=== PATIENT | male | born 1945 | race Caucasian/White ===

== ENCOUNTER 2020-07-11 14:10 | Emergency (ER) | payer OTHER, MEDICARE, BC ==
[~2020-07-11] VITALS: Ht 185.4 cm; Wt 98.9 kg
[~2020-07-11 14:10] MED LIST: ASPI-1265 PO; CARB15DR88 OP; DOCU250C96 PO; FERR325T28 PO; LEVO50TA78 PO; RANI300C7 PO; SENN-28 PO; TIOT18CA7 IH; ZOC40T PO
[2020-07-11 16:50] LABS: CLARITY,URINE CLEAR (Clear); COLOR,URINE YELLOW (Yellow); GLUCOSE, URINE NEGATIVE (Neg); KETONES,URINE NEGATIVE (Neg); LEUKOCYTE ESTERASE ,URINE NEGATIVE (Neg); NITRITES, URINE NEGATIVE (Neg); OCCULT BLOOD,URINE NEGATIVE (Neg); PROTEIN,URINE NEGATIVE (Neg)
--- NOTE | 2020-07-11 17:02 | NUR ---
PT STOPPED HIS PSYCH MED IN 2012. PT HEARING VOICES, SEEING DEMONS AND RACING THOUGHTS FOR THE PAST 2-3 DAYS. WORSENING TODAY. PT FEELS LIKE HE IS POSSESSED. FINDS COMFORT READING BIBLE. PT STATES, MY NIECE WOULD SAY SOMETHING (APPROPRIAE) AND I BECOME IRRATIONAL AND START YELLING FOR NO REASON. " I START TO BECOME SOMEONE I DONT LIKE. PT FEELS LIKE THOUGHTS ARE GETTING WORSE AND AFRAID MIGHT HURT OTHERS AND THEN HURT HIMSELF.. HE CAME IN TODAY FOR HELP BEFORE SOMETHING BAD HAPPENS.
[2020-07-11 17:08] LABS: URINE AMPHETAMINE SCREEN NEGATIVE (Neg); URINE BARBITUATE SCREEN NEGATIVE (Neg); URINE BENZODIAZEPINES SCREEN NEGATIVE (Neg); URINE CANNABINOID SCREEN NEGATIVE (Neg); URINE COCAINE SCREEN NEGATIVE (Neg); URINE METHADONE SCREEN NEGATIVE (Neg); URINE OPIATE SCREEN NEGATIVE (Neg); URINE PHENCYCLIDINE SCREEN NEGATIVE (Neg)
[2020-07-11 17:11] LABS: UA COLLECTION TYPE CLN CATCH MIDSTREAM
--- NOTE | 2020-07-11 17:14 | NUR ---
FRANCISCO JAVIER SISTER CALLED TO LEAVE PHONE NUMBER OF EVANGELICAL FRIEND JACINDA [phone].
[2020-07-11 17:19] LABS: BASOPHILS % (AUTO) 0.5 % (0-1); EOSINOPHILS # (AUTO) 0.2 X10'3 (0-0.9); EOSINOPHILS % (AUTO) 3.5 % (0-6); HEMATOCRIT 40.6 % (42.0-52.0); HEMOGLOBIN 13.3 g/dl (14.0-17.9); LYMPHOCYTES # (AUTO) 1.4 X10'3 (1.1-4.8); LYMPHOCYTES % (AUTO) 31.4 % (21-51); MEAN CORPUSCULAR HEMOGLOBIN 32.4 PG (27.0-31.0); MEAN CORPUSCULAR HGB CONC 32.7 g/dL (33.0-36.5); MEAN CORPUSCULAR VOLUME 99.2 FL (78-98); MONOCYTES # (AUTO) 0.6 X10'3 (0-0.9); MONOCYTES % (AUTO) 12.6 % (2-12); NEUTROPHILS # (AUTO) 2.4 X10'3 (1.8-7.7); PLATELET COUNT 186 X10'3 (140-440); RED BLOOD COUNT 4.09 X10'6 (4.70-6.10); RED CELL DISTRIBUTION WIDTH 13.9 % (11.5-14.5); WHITE BLOOD COUNT 4.6 X10'3 (4.5-11.0)
[2020-07-11 17:41] LABS: ALANINE AMINOTRANSFERASE 17 U/L (12-78); ALBUMIN 3.6 G/DL (3.4-5.0); ALBUMIN/GLOBULIN RATIO 1.1 (1.1-1.5); ALKALINE PHOSPHATASE 50 IU/L (46-116); ANION GAP 2 (8-16); ASPARTATE AMINO TRANSFERASE 16 U/L (10-37); BILIRUBIN,TOTAL 0.9 MG/DL (0.1-1.0); BLOOD UREA NITROGEN 9 MG/DL (7-18); BUN/CREATININE RATIO 12.9 (5.4-32.0); CALCIUM 8.4 MG/DL (8.5-10.1); CHLORIDE 105 MMOL/L (99-107); GLUCOSE 86 MG/DL (70-104); POTASSIUM 4.7 MMOL/L (3.5-5.1); SODIUM 141 MMOL/L (135-145); TOTAL CARBON DIOXIDE 33.7 MMOL/L (24-32); eGFR > 90 ML/MIN
--- NOTE | 2020-07-11 17:45 | NUR ---
FAXED PACKET [facility]
--- NOTE | 2020-07-11 18:30 | NUR ---
pt sitting on edge of bed eating dinner and then ambulated to the bathroom without issue. returned self to bed.
[2020-07-11] MEDS ORDERED: NO HOME MEDS (19:23)
--- NOTE | 2020-07-11 19:34 | NUR ---
PT USED PHONE TO CONTACT FAMILY. PT NOW SITTING IN BED READING BIBLE COMFORTABLY.
--- NOTE | 2020-07-11 20:30 | NUR ---
pt sitting in bed reading bible. has no nightly medications. will continue to monitor. is calm, polite, cooperative with staff.
--- NOTE | 2020-07-11 21:25 | NUR ---
pt denies any suicidal ideation, but states scared as the voices and hallucinations have increased over the last few days. pt states reading his bible helps him concentrate on reality and decrease the racing thoughts. states the demon voices want him to hurt himself or others but he does not want to. pt is now currently sleeping with no visible discomfort, respirations even and unlabored and no s/s distress.
--- NOTE | 2020-07-11 22:30 | NUR ---
pt appears asleep laying on back. no s/s distress and respirations even and unlabored. will continue to monitor.
--- NOTE | 2020-07-11 23:29 | NUR ---
pt appears asleep laying on back. no s/s distress and respirations even and unlabored. will continue to monitor.
--- NOTE | 2020-07-11 23:41 | NUR ---
pt woke up and ambulated to bathroom. pt then returned to bed without any issue. will continue to monitor
--- NOTE | 2020-07-12 00:30 | NUR ---
pt appears asleep laying on back. no s/s distress and respirations even and unlabored. will continue to monitor.
--- NOTE | 2020-07-12 01:20 | NUR ---
pt ambulated up to bed and requesting fresh ice water. water provided and pt then returned back to bed and appears now to be asleep.
--- NOTE | 2020-07-12 02:30 | NUR ---
pt appears asleep laying on right side. no s/s distress and respirations even and unlabored. will continue to monitor.
--- NOTE | 2020-07-12 03:51 | NUR ---
pt woke up to use restroom and complained of headache. spoke with braulio stratton who stated to give tylenol 650mg po x1 dose now. order completed as instructed. pt then returned back to bed after medication.
[2020-07-12] MEDS ORDERED: acetaminophen 325mg tablet PO ONE (03:55)
--- NOTE | 2020-07-12 04:40 | NUR ---
pt appears asleep laying on right side. no s/s distress and respirations even and unlabored. will continue to monitor.
[2020-07-12 05:48] VITALS: BP 98/54
--- NOTE | 2020-07-12 06:00 | NUR ---
pt ambulated up to bathroom and is now reading a book in bed. pt polite and cooperative.
--- NOTE | 2020-07-12 10:20 | NUR ---
sister called for transport
--- NOTE | 2020-07-12 12:57 | NUR ---
PATIENT IS GETTING READY FOR DC. PATIENT'S SISTER IS HERE IN PARKING LOT TO GIVE HIM A RIDE HOME.
== END 2020-07-12 13:13 | disposition home or self-care (01) ==
LOC: ER 14:11
DX: F20.9 Schizophrenia, unspecified (principal); I10 Essential (primary) hypertension; J44.9 Chronic obstructive pulmonary disease, unspecified; M19.90 Unspecified osteoarthritis, unspecified site; Z79.899 Other long term (current) drug therapy; Z79.82 Long term (current) use of aspirin
CPT/HCPCS: 36415; 80053; 80305; 81003; 84443; 85025; 99283

== ENCOUNTER 2020-07-31 13:28 | Emergency (ER) | payer OTHER, BC ==
[~2020-07-31] VITALS: Ht 185.4 cm; Wt 96.4 kg
[~2020-07-31 13:28] MED LIST changes: -ASPI-1265 PO; -CARB15DR88 OP; -DOCU250C96 PO; -FERR325T28 PO; -LEVO50TA78 PO; +NO HOME MEDS; -RANI300C7 PO; -SENN-28 PO; -TIOT18CA7 IH; -ZOC40T PO
--- NOTE | 2020-07-31 14:22 | NUR ---
linda soto pa at bedside to clement pt, pt is 75 yo male c/o SOB x2-3 days, no fever, no chest pain, no cough, [facility] no [facility] distress, talking full sentences
[2020-07-31 15:24] LABS: BASOPHILS % (AUTO) 0.5 % (0-1); EOSINOPHILS # (AUTO) 0.2 X10'3 (0-0.9); EOSINOPHILS % (AUTO) 5.3 % (0-6); HEMATOCRIT 39.8 % (42.0-52.0); HEMOGLOBIN 13.1 g/dl (14.0-17.9); LYMPHOCYTES # (AUTO) 1.3 X10'3 (1.1-4.8); LYMPHOCYTES % (AUTO) 30.5 % (21-51); MEAN CORPUSCULAR HEMOGLOBIN 32.3 PG (27.0-31.0); MEAN CORPUSCULAR HGB CONC 32.8 g/dL (33.0-36.5); MEAN CORPUSCULAR VOLUME 98.5 FL (78-98); MEAN PLATELET VOLUME 6.6 FL (7.4-10.4); MONOCYTES # (AUTO) 0.5 X10'3 (0-0.9); MONOCYTES % (AUTO) 11.6 % (2-12); NEUTROPHILS # (AUTO) 2.2 X10'3 (1.8-7.7); NEUTROPHILS % (AUTO) 52.1 % (42-75); PLATELET COUNT 199 X10'3 (140-440); RED BLOOD COUNT 4.04 X10'6 (4.70-6.10); RED CELL DISTRIBUTION WIDTH 14.3 % (11.5-14.5); WHITE BLOOD COUNT 4.2 X10'3 (4.5-11.0)
[2020-07-31 15:42] LABS: ALANINE AMINOTRANSFERASE 23 U/L (12-78); ALBUMIN 3.4 G/DL (3.4-5.0); ALBUMIN/GLOBULIN RATIO 1.1 (1.1-1.5); ALKALINE PHOSPHATASE 48 IU/L (46-116); ANION GAP 1 (8-16); ASPARTATE AMINO TRANSFERASE 19 U/L (10-37); BILIRUBIN,TOTAL 1.2 MG/DL (0.1-1.0); BLOOD UREA NITROGEN 7 MG/DL (7-18); BUN/CREATININE RATIO 8.6 (5.4-32.0); CALCIUM 8.5 MG/DL (8.5-10.1); CHLORIDE 105 MMOL/L (99-107); CREATININE 0.81 MG/DL (0.60-1.10); GLUCOSE 90 MG/DL (70-104); POTASSIUM 4.3 MMOL/L (3.5-5.1); SODIUM 142 MMOL/L (135-145); TOTAL PROTEIN 6.5 G/DL (6.4-8.2); eGFR > 90 ML/MIN
[2020-07-31] MEDS ORDERED: albuterol 2.5 MG/3 ML nebule NEB ONE (16:15)
[2020-07-31] MEDS ORDERED: ALBU8HFA PO (16:53)
[2020-07-31 17:53] VITALS: BP 117/60
== END 2020-07-31 17:49 | disposition home or self-care (01) ==
LOC: ER 13:29
DX: R06.02 Shortness of breath (principal); I10 Essential (primary) hypertension; J44.9 Chronic obstructive pulmonary disease, unspecified; M19.90 Unspecified osteoarthritis, unspecified site; F20.9 Schizophrenia, unspecified; Z79.899 Other long term (current) drug therapy
CPT/HCPCS: 36415; 71045; 80053; 83880; 84484; 85025; 93005; 94640; 94760; 99285

== ENCOUNTER 2020-08-22 23:01 | Emergency (ER) | payer OTHER, MEDICARE, BC ==
[~2020-08-22] VITALS: Ht 185.4 cm; Wt 96.4 kg
[~2020-08-22 23:01] MED LIST changes: +ALBU8HFA PO
--- NOTE | 2020-08-22 23:35 | NUR ---
PATIENT IN BED COVERS ON SUPIN HOB 30 DEGREES RR EVEN UN LABORED NO OBSERVABLE S/S OF ACUTE STRESS AT THIS TIME WILL CONTINUE TO MONITOR
[2020-08-22 23:43] LABS: PARTIAL THROMBOPLASTIN TIME 26 SECONDS (22-32)
[2020-08-22 23:45] LABS: ALANINE AMINOTRANSFERASE 20 U/L (12-78); ALBUMIN 3.4 G/DL (3.4-5.0); ALBUMIN/GLOBULIN RATIO 1.1 (1.1-1.5); ALKALINE PHOSPHATASE 54 IU/L (46-116); ANION GAP 2 (8-16); ASPARTATE AMINO TRANSFERASE 13 U/L (10-37); BLOOD UREA NITROGEN 10 MG/DL (7-18); BUN/CREATININE RATIO 11.1 (5.4-32.0); CALCIUM 8.4 MG/DL (8.5-10.1); CHLORIDE 104 MMOL/L (99-107); GLUCOSE 148 MG/DL (70-104); POTASSIUM 3.9 MMOL/L (3.5-5.1); SODIUM 139 MMOL/L (135-145); TOTAL CARBON DIOXIDE 33.5 MMOL/L (24-32); TOTAL PROTEIN 6.6 G/DL (6.4-8.2); eGFR 83 ML/MIN
[2020-08-23 00:23] LABS: BASOPHILS % (AUTO) 0.5 % (0-1); EOSINOPHILS # (AUTO) 0.2 X10'3 (0-0.9); EOSINOPHILS % (AUTO) 4.3 % (0-6); HEMATOCRIT 39.9 % (42.0-52.0); HEMOGLOBIN 13.3 g/dl (14.0-17.9); LYMPHOCYTES # (AUTO) 1.3 X10'3 (1.1-4.8); LYMPHOCYTES % (AUTO) 26.2 % (21-51); MEAN CORPUSCULAR HEMOGLOBIN 32.8 PG (27.0-31.0); MEAN CORPUSCULAR HGB CONC 33.2 g/dL (33.0-36.5); MEAN CORPUSCULAR VOLUME 98.7 FL (78-98); MEAN PLATELET VOLUME 7.2 FL (7.4-10.4); MONOCYTES # (AUTO) 0.5 X10'3 (0-0.9); MONOCYTES % (AUTO) 10.2 % (2-12); NEUTROPHILS % (AUTO) 58.8 % (42-75); PLATELET COUNT 181 X10'3 (140-440); RED BLOOD COUNT 4.04 X10'6 (4.70-6.10); RED CELL DISTRIBUTION WIDTH 13.9 % (11.5-14.5); WHITE BLOOD COUNT 5.1 X10'3 (4.5-11.0)
[2020-08-23 00:38] LABS: CLARITY,URINE CLEAR (Clear); COLOR,URINE YELLOW (Yellow); GLUCOSE, URINE NEGATIVE (Neg); KETONES,URINE NEGATIVE (Neg); LEUKOCYTE ESTERASE ,URINE NEGATIVE (Neg); NITRITES, URINE NEGATIVE (Neg); OCCULT BLOOD,URINE NEGATIVE (Neg); PH,URINE 5.5 (4.8-8.0); PROTEIN,URINE NEGATIVE (Neg); UROBILINOGEN,URINE 0.2 E.U/dL (0.2-1.0)
[2020-08-23 00:42] LABS: UA COLLECTION TYPE CLN CATCH MIDSTREAM
[2020-08-23 00:44] LABS: URINE AMPHETAMINE SCREEN NEGATIVE (Neg); URINE BARBITUATE SCREEN NEGATIVE (Neg); URINE BENZODIAZEPINES SCREEN NEGATIVE (Neg); URINE CANNABINOID SCREEN NEGATIVE (Neg); URINE COCAINE SCREEN NEGATIVE (Neg); URINE METHADONE SCREEN NEGATIVE (Neg); URINE OPIATE SCREEN NEGATIVE (Neg); URINE PHENCYCLIDINE SCREEN NEGATIVE (Neg)
[2020-08-23] MEDS ORDERED: QUEtiapine 25mg tablet PO ONE (01:23)
[2020-08-23] MEDS ORDERED: ZIPR60CA7 PO (01:57)
--- NOTE | 2020-08-23 02:12 | NUR ---
pt moved from 6 to room 14
--- NOTE | 2020-08-23 02:31 | NUR ---
PT REPORTS NASAL IRRITATION AND DRYNESS. CONSULTED WITH RESPIRATORY TO HAVE HUMIDIFIER PLACED ON NC. RESP TO CONSULT
--- NOTE | 2020-08-23 04:55 | NUR ---
UP TO BR , AMBLUATING WITH STEADY GAIT. CONTINUES ON 2 LITER NC. SATS 95%
--- NOTE | 2020-08-23 05:56 | NUR ---
MED REC SIGNED BY AND FAXED TO PHARMACY. PT SLEEPING, LYING ON HIS BACK WITH BLANKETS COVERING TO HIS CHEST.
--- NOTE | 2020-08-23 07:00 | NUR ---
PT REMAINS ASLEEP, WILL DO GENERAL ASSESSMENT WHEN PT WAKES UP. NO S/S OF DISTRESS NOTED AT THIS TIME
--- NOTE | 2020-08-23 07:56 | NUR ---
HOME RN HERE, REPORT GIVEN
[2020-08-23] MEDS ORDERED: ziprasidone 20mg capsule PO SCH (08:00)
--- NOTE | 2020-08-23 08:12 | NUR ---
Patient laying supine in bed sleeping. Respirations are equal and nonlabored.
--- NOTE | 2020-08-23 09:37 | NUR ---
Patient awakened, ate breakfast and took medications without incident. Patient is hyperverbal and tearful as he talks about his life. Patient reports that last night he had racing thoughts that he could not control. Reports that he has occasional AH. Patient presents as hyper-synagogue. Patient's stressors are that he has a niece and her father that are living with him, and they continually belittle him. It became so much that he moved into his sisters house (his payee) until they move out on November 03, 2020. When he confronts their behavior, they turn it around on him that he is belitteling to them, and then he feels guilty and lets them stay. Patient did report that last night he was fearful of hurting someone else. He started taking Geodon two months ago, but reports that he has to wait for his medication to be filled, and then he runs out. Patient reports depressive symptoms.
--- NOTE | 2020-08-23 10:19 | NUR ---
Patient is sleeping after Geodon administration.
--- NOTE | 2020-08-23 11:24 | NUR ---
Patient ambulated to restroom. Steady gait. Now laying back down in bed.
--- NOTE | 2020-08-23 12:21 | NUR ---
PT'S SISTER CALLED FOR STATUS UPDATE. WAS TOLD PT WAS STILL IN THE ER. CONTACT INFO IF NEEDED: ARAVIND CROSS
--- NOTE | 2020-08-23 12:34 | NUR ---
Lani Sandoval here to evaluate patient for admission to [facility].
--- NOTE | 2020-08-23 13:19 | NUR ---
Patient has been accepted at [facility] as voluntary placement.
[2020-08-23 13:37] VITALS: BP 103/61
== END 2020-08-23 15:24 ==
LOC: ER 23:02
DX: F20.9 Schizophrenia, unspecified (principal); I10 Essential (primary) hypertension; J44.9 Chronic obstructive pulmonary disease, unspecified; M19.90 Unspecified osteoarthritis, unspecified site; Z79.899 Other long term (current) drug therapy
CPT/HCPCS: 36415; 71045; 80053; 80305; 81003; 85025; 85730; 99285

== ENCOUNTER 2020-09-13 11:52 | Emergency (ER) | payer OTHER, BC ==
[~2020-09-13] VITALS: Ht 185.4 cm; Wt 96.4 kg
[~2020-09-13 11:52] MED LIST changes: -ALBU8HFA PO; +ESCI5TAB PO; -NO HOME MEDS; +TRAZ-251 PO; +ZIPR40CA2 PO
[2020-09-13 12:03] VITALS: BP 125/74
== END 2020-09-13 14:46 | disposition home or self-care (01) ==
LOC: ER 11:53
DX: M54.5 Low back pain (principal); I10 Essential (primary) hypertension; J44.9 Chronic obstructive pulmonary disease, unspecified; M19.90 Unspecified osteoarthritis, unspecified site; F20.9 Schizophrenia, unspecified; Z79.899 Other long term (current) drug therapy
CPT/HCPCS: 99281

== ENCOUNTER 2021-01-30 21:09 | Emergency (ER) | payer OTHER, BC ==
[~2021-01-30] VITALS: Ht 185.4 cm; Wt 97.7 kg
[2021-01-30 22:40] VITALS: BP 98/50
--- NOTE | 2021-01-30 23:03 | NUR ---
BREAKING PRIMARY RN- WILL CONT TO MONITOR
--- NOTE | 2021-01-30 23:07 | NUR ---
ULTRASOUND AT BEDSIDE NOW.
[2021-01-30 23:09] LABS: CLARITY,URINE CLEAR (Clear); COLOR,URINE YELLOW (Yellow); GLUCOSE, URINE NEGATIVE (Neg); KETONES,URINE NEGATIVE (Neg); LEUKOCYTE ESTERASE ,URINE NEGATIVE (Neg); NITRITES, URINE NEGATIVE (Neg); OCCULT BLOOD,URINE NEGATIVE (Neg); PROTEIN,URINE NEGATIVE (Neg)
[2021-01-30 23:10] LABS: UA COLLECTION TYPE URINAL
--- NOTE | 2021-01-30 23:17 | NUR ---
BEDSIDE ULTRASOUND COMPLETED.
== END 2021-01-31 00:18 | disposition home or self-care (01) ==
LOC: ER 21:10
DX: R10.32 Left lower quadrant pain (principal); N50.812 Left testicular pain; I10 Essential (primary) hypertension; J44.9 Chronic obstructive pulmonary disease, unspecified; M19.90 Unspecified osteoarthritis, unspecified site; F20.9 Schizophrenia, unspecified; Z79.899 Other long term (current) drug therapy
CPT/HCPCS: 76705; 76870; 81003; 93976; 99285

== ENCOUNTER 2021-02-05 18:08 | Emergency (ER) | payer OTHER, BC ==
[~2021-02-05] VITALS: Ht 185.4 cm; Wt 90.9 kg
[2021-02-05 18:15] VITALS: BP 125/61
[2021-02-07] MEDS ORDERED: CARB1DRO11 EACHEYE (17:07)
[2021-02-07] MEDS ORDERED: OLAN7.5T9 PO (17:07)
[2021-02-07] MEDS ORDERED: TRAZ-251 PO (17:07)
[2021-02-07] MEDS ORDERED: GABA300C PO (17:07)
[2021-02-07] MEDS ORDERED: ESCI5TAB17 PO (17:07)
== END 2021-02-05 21:00 | disposition left against medical advice (07) ==
LOC: ER 18:11
DX: R41.0 Disorientation, unspecified (principal); Z53.21 Procedure and treatment not carried out due to patient leaving prior to being seen by health care provider

== ENCOUNTER 2021-02-16 07:02 | Inpatient (IN) | payer OTHER, BC ==
[~2021-02-16] VITALS: Ht 185.4 cm; Wt 91.4 kg
[2021-02-16] VITALS (9 sets, daily range): BP systolic 81–114; BP diastolic 48–65
[~2021-02-16 07:02] MED LIST changes: +CARB1DRO11 EACHEYE; -ESCI5TAB PO; +ESCI5TAB17 PO; +GABA300C PO; +OLAN7.5T9 PO; +PRED10TA23 PO; -ZIPR40CA2 PO
[2021-02-16] MEDS ORDERED: ipratropium/albuterol 3ml nebule NEB ONE ×2 (07:15→08:45)
[2021-02-16 07:22] LABS: BASOPHILS % (AUTO) 0.5 % (0-1); EOSINOPHILS # (AUTO) 0.2 X10'3 (0-0.9); EOSINOPHILS % (AUTO) 2.1 % (0-6); HEMATOCRIT 39.9 % (42.0-52.0); HEMOGLOBIN 12.4 g/dl (14.0-17.9); LYMPHOCYTES # (AUTO) 1.9 X10'3 (1.1-4.8); LYMPHOCYTES % (AUTO) 26.1 % (21-51); MEAN CORPUSCULAR HEMOGLOBIN 31.4 PG (27.0-31.0); MEAN CORPUSCULAR HGB CONC 31.2 g/dL (33.0-36.5); MEAN CORPUSCULAR VOLUME 100.8 FL (78-98); MEAN PLATELET VOLUME 6.6 FL (7.4-10.4); MONOCYTES # (AUTO) 0.9 X10'3 (0-0.9); MONOCYTES % (AUTO) 12.8 % (2-12); NEUTROPHILS # (AUTO) 4.3 X10'3 (1.8-7.7); NEUTROPHILS % (AUTO) 58.5 % (42-75); PLATELET COUNT 236 X10'3 (140-440); RED BLOOD COUNT 3.96 X10'6 (4.70-6.10); RED CELL DISTRIBUTION WIDTH 15.2 % (11.5-14.5); WHITE BLOOD COUNT 7.4 X10'3 (4.5-11.0)
[2021-02-16 07:57] LABS: ALANINE AMINOTRANSFERASE 22 U/L (12-78); ALBUMIN 2.8 G/DL (3.4-5.0); ALBUMIN/GLOBULIN RATIO 0.8 (1.1-1.5); ALKALINE PHOSPHATASE 57 IU/L (46-116); ANION GAP 0 (8-16); ASPARTATE AMINO TRANSFERASE 12 U/L (10-37); BILIRUBIN,TOTAL 0.5 MG/DL (0.1-1.0); BLOOD UREA NITROGEN 15 MG/DL (7-18); BUN/CREATININE RATIO 17.4 (5.4-32.0); CALCIUM 8.3 MG/DL (8.5-10.1); CHLORIDE 105 MMOL/L (99-107); CREATININE 0.86 MG/DL (0.60-1.10); GLUCOSE 100 MG/DL (70-104); POTASSIUM 4.4 MMOL/L (3.5-5.1); SODIUM 146 MMOL/L (135-145); TOTAL PROTEIN 6.5 G/DL (6.4-8.2); eGFR 87 ML/MIN
[2021-02-16 08:11] LABS: TOTAL CARBON DIOXIDE 41.2 MMOL/L (24-32)
[2021-02-16] MEDS ORDERED: ondansetron/PF 4mg/2ml inj IV PRN (08:50)
[2021-02-16] MEDS ORDERED: HYDROcodone/acetaminophen 10/325mg tab PO PRN (08:50)
[2021-02-16] MEDS ORDERED: acetaminophen 325mg tablet PO PRN ×2 (08:50)
[2021-02-16] MEDS ORDERED: morphine 2 MG/ML inj. syringe IV PRN ×2 (08:50)
[2021-02-16] MEDS ORDERED: HYDROcodone/acetaminophen 5mg/325mg tablet PO PRN (08:50)
[2021-02-16] MEDS ORDERED: mag hydrox/Alum hydrox/simeth 30ml oral suspension PO PRN (08:50)
[2021-02-16] MEDS ORDERED: magnesium hydroxide 30ml (MOM) UD suspension PO PRN (08:50)
[2021-02-16] MEDS ORDERED: nitroGLYCERIN 0.4mg SUBLingual tab SL PRN (09:30)
[2021-02-16] MEDS ORDERED: metoprolol tartrate 1mg/ml inj IV PRN (09:30)
[2021-02-16] MEDS ORDERED: regadenoson 0.4mg/5ml syringe IV ONE (09:30)
[2021-02-16] MEDS ORDERED: aminophylline 250mg/10ml inj. IV PRN (09:30)
[2021-02-16] MEDS ORDERED: furosemide 20 MG/2 ML vial IV ONE (09:40)
--- NOTE | 2021-02-16 09:43 | NUR ---
RT at bedside for neb as ordered.
--- NOTE | 2021-02-16 11:30 | NUR ---
To nuclear medicine via for study as ordered. Addendum: 02/16/21 at 1223 by GENOVEVA nuc med nurse previously administered medication; still awaiting study at this time.
[2021-02-16] MEDS ORDERED: CALC-225 PO (12:21)
--- NOTE | 2021-02-16 12:44 | NUR ---
To [employer] for study via .
[2021-02-16] MEDS ORDERED: gabapentin 300mg capsule PO ONE (16:20)
[2021-02-16] MEDS ORDERED: traZODone 50mg tablet PO PRN (16:25)
[2021-02-16] MEDS ORDERED: OLANZapine 2.5MG tablet PO SCH (21:00)
[2021-02-16] MEDS: PEG 400/HYPROMELLOSE/GLYCERIN 15ml bottle EACHEYE SCH (21:39)
[2021-02-17 06:00] VITALS: BP 108/57
--- NOTE | 2021-02-17 06:22 | NUR ---
Problems reprioritized. Patient report given, questions answered & plan of care reviewed with BERNIE Mosqueda.
--- NOTE | 2021-02-17 06:31 | NUR ---
Patient in room PCU 3014. I have received report from BERNIE Padilla and had the opportunity to ask questions and assume patient care.
--- NOTE | 2021-02-17 07:05 | NUR ---
Paged Dr Any nichols pt medication: PAGER ID: [phone] MESSAGE: pt alton Ochoa, rm [id number] hypotension: 80/68, 83/41, 82/38. HR in low 100s. Remains on bipap. would you like any tx? Jaylin [phone] Addendum: 02/17/21 at 0706 by Jaylin Saleh RN wrong patient
--- NOTE | 2021-02-17 07:06 | NUR ---
Paged Dr. Agarwal re: pt medications: PAGER ID: [phone] MESSAGE: Med rec completed for this patient. Patient states "I need my nerve pain pill or I will scream" May pt have Gabapentin 300 mg TID? Thank you Jaylin [phone]
[2021-02-17 07:25] LABS: BASOPHILS % (AUTO) 0.2 % (0-1); EOSINOPHILS # (AUTO) 0.2 X10'3 (0-0.9); EOSINOPHILS % (AUTO) 2.8 % (0-6); HEMATOCRIT 39.9 % (42.0-52.0); HEMOGLOBIN 12.8 g/dl (14.0-17.9); LYMPHOCYTES # (AUTO) 1.7 X10'3 (1.1-4.8); LYMPHOCYTES % (AUTO) 25.5 % (21-51); MEAN CORPUSCULAR HGB CONC 32.1 g/dL (33.0-36.5); MEAN CORPUSCULAR VOLUME 99.7 FL (78-98); MEAN PLATELET VOLUME 6.6 FL (7.4-10.4); MONOCYTES # (AUTO) 0.7 X10'3 (0-0.9); MONOCYTES % (AUTO) 11.2 % (2-12); NEUTROPHILS # (AUTO) 3.9 X10'3 (1.8-7.7); NEUTROPHILS % (AUTO) 60.3 % (42-75); PLATELET COUNT 251 X10'3 (140-440); RED CELL DISTRIBUTION WIDTH 14.9 % (11.5-14.5); WHITE BLOOD COUNT 6.5 X10'3 (4.5-11.0)
[2021-02-17] MEDS: PEG 400/HYPROMELLOSE/GLYCERIN 15ml bottle EACHEYE SCH (07:37)
[2021-02-17 07:53] LABS: ANION GAP 1 (8-16); BLOOD UREA NITROGEN 18 MG/DL (7-18); BUN/CREATININE RATIO 21.2 (5.4-32.0); CALCIUM 8.7 MG/DL (8.5-10.1); CHLORIDE 104 MMOL/L (99-107); CHOL/HDL RATIO 2.9 (0.00-4.99); CHOLESTEROL 176 MG/DL (0-200); CREATININE 0.85 MG/DL (0.60-1.10); GLUCOSE 84 MG/DL (70-104); HDL CHOLESTEROL 61 MG/DL (35-60); LDL CHOLESTEROL 100 MG/DL (50-100); POTASSIUM 4.8 MMOL/L (3.5-5.1); SODIUM 147 MMOL/L (135-145); TRIGLYCERIDES 94 MG/DL (20-135); eGFR 88 ML/MIN
[2021-02-17] MEDS ORDERED: ESCITALOPRAM OXALATE 5 MG TABLET PO SCH (08:00)
[2021-02-17] MEDS ORDERED: calcium carbonate 500mg tablet PO SCH (08:00)
[2021-02-17 08:13] LABS: TOTAL CARBON DIOXIDE 42.1 MMOL/L (24-32)
--- NOTE | 2021-02-17 08:15 | NUR ---
notified Dr. Agarwal of Crit CO2 value via pager: PAGER ID: [phone] MESSAGE: CRIT value: Mayra Lozada 3014A CO2 is 42.1 up from 41.2 yesterday. Please advise. Jaylin [phone]
[2021-02-17] MEDS: gabapentin 300mg capsule PO PRN ×2 (10:16→13:26)
--- NOTE | 2021-02-17 13:40 | NUR ---
Patient stable for discharge per MD orders. All discharge instructions reviewed with the patient and his sister, who were given the opportunity to ask questions. All questions were answered with patient indicating full understanding. New prescriptions transmitted to [facility] in [place]. 2 PIVs discontinued intact with no blood loss. apparel machinery instructor discontinued and returned to the telemetry office. Belongings collected and sent with patient, including home medications, which were retrieved from the hospital pharmacy. 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
[2021-02-17] MEDS ORDERED: FURO-150 PO (16:45)
== END 2021-02-17 13:40 | disposition home health service (06) | DRG 292 ==
LOC: ER 07:03 → ED HOLD 08:47 → PCU 3S 19:17
PROVIDERS: ADMIT Internal Medicine; ATTEND Internal Medicine
PROC: 4A02XM4 Measurement of Cardiac Total Activity, External Approach (ICD-10-PCS; principal; 2021-02-16)
PROC: 3E073KZ Introduction of Other Diagnostic Substance into Coronary Artery, Percutaneous Approach (ICD-10-PCS; 2021-02-16)
DX: I11.0 Hypertensive heart disease with heart failure (principal); J96.11 Chronic respiratory failure with hypoxia; R07.9 Chest pain, unspecified; I50.813 Acute on chronic right heart failure; F20.9 Schizophrenia, unspecified; I27.29 Other secondary pulmonary hypertension; M19.90 Unspecified osteoarthritis, unspecified site; F32.9 Major depressive disorder, single episode, unspecified; J44.9 Chronic obstructive pulmonary disease, unspecified; K44.9 Diaphragmatic hernia without obstruction or gangrene; Z79.899 Other long term (current) drug therapy; Z87.891 Personal history of nicotine dependence; Z99.81 Dependence on supplemental oxygen; Z88.8 Allergy status to other drugs, medicaments and biological substances
CPT/HCPCS: 36415; 71045; 71250; 78452; 80048; 80053; 80061; 83605; 83880; 84484; 85025; 87081; 93005; 93017; 93306; 93308; 94640; 94760; 99285; A9500; G0378; J1940; J2785

== ENCOUNTER 2021-03-01 08:28 | Emergency (ER) | payer OTHER, BC ==
[~2021-03-01] VITALS: Ht 185.4 cm; Wt 94.1 kg
[~2021-03-01 08:28] MED LIST changes: +CALC-225 PO; +FURO-150 PO; -PRED10TA23 PO
[2021-03-01 09:21] LABS: BASOPHILS % (AUTO) 0.2 % (0-1); EOSINOPHILS # (AUTO) 0.1 X10'3 (0-0.9); EOSINOPHILS % (AUTO) 2.9 % (0-6); HEMATOCRIT 37.1 % (42.0-52.0); HEMOGLOBIN 11.9 g/dl (14.0-17.9); LYMPHOCYTES % (AUTO) 21.3 % (21-51); MEAN CORPUSCULAR HEMOGLOBIN 31.9 PG (27.0-31.0); MEAN CORPUSCULAR VOLUME 99.5 FL (78-98); MEAN PLATELET VOLUME 6.9 FL (7.4-10.4); MONOCYTES # (AUTO) 0.5 X10'3 (0-0.9); MONOCYTES % (AUTO) 10.2 % (2-12); NEUTROPHILS # (AUTO) 3.2 X10'3 (1.8-7.7); NEUTROPHILS % (AUTO) 65.4 % (42-75); PLATELET COUNT 155 X10'3 (140-440); RED BLOOD COUNT 3.73 X10'6 (4.70-6.10); RED CELL DISTRIBUTION WIDTH 14.7 % (11.5-14.5); WHITE BLOOD COUNT 4.8 X10'3 (4.5-11.0)
[2021-03-01 09:34] LABS: ALANINE AMINOTRANSFERASE 34 U/L (12-78); ALBUMIN 2.7 G/DL (3.4-5.0); ALBUMIN/GLOBULIN RATIO 0.8 (1.1-1.5); ALKALINE PHOSPHATASE 56 IU/L (46-116); ANION GAP 0 (8-16); ASPARTATE AMINO TRANSFERASE 23 U/L (10-37); BILIRUBIN,TOTAL 0.6 MG/DL (0.1-1.0); BLOOD UREA NITROGEN 20 MG/DL (7-18); BUN/CREATININE RATIO 24.4 (5.4-32.0); CALCIUM 8.1 MG/DL (8.5-10.1); CHLORIDE 103 MMOL/L (99-107); CREATININE 0.82 MG/DL (0.60-1.10); GLUCOSE 174 MG/DL (70-104); POTASSIUM 4.2 MMOL/L (3.5-5.1); SODIUM 143 MMOL/L (135-145); TOTAL CARBON DIOXIDE 39.6 MMOL/L (24-32); TOTAL PROTEIN 6.2 G/DL (6.4-8.2); eGFR > 90 ML/MIN
[2021-03-01] MEDS ORDERED: ipratropium/albuterol 3ml nebule NEB ONE (10:15)
[2021-03-01 10:45] VITALS: BP 113/56
== END 2021-03-01 10:45 | disposition home or self-care (01) ==
LOC: ER 08:28
DX: J44.1 Chronic obstructive pulmonary disease with (acute) exacerbation (principal); R06.02 Shortness of breath; I10 Essential (primary) hypertension; M19.90 Unspecified osteoarthritis, unspecified site; F20.9 Schizophrenia, unspecified; Z79.899 Other long term (current) drug therapy
CPT/HCPCS: 36415; 71045; 80053; 83880; 85025; 93005; 94640; 94760; 99285

== ENCOUNTER 2021-03-14 01:10 | Emergency (ER) | payer OTHER, BC ==
[~2021-03-14] VITALS: Ht 185.4 cm; Wt 215.0 kg
[2021-03-14] MEDS ORDERED: wheelchair (01:34)
[2021-03-14] MEDS ORDERED: acetaminophen 325mg tablet PO ONE (01:35)
[2021-03-14] MEDS ORDERED: ibuprofen tablet 400 MG TABLET PO ONE (04:05)
[2021-03-14 05:30] VITALS: BP 98/54
== END 2021-03-14 10:28 | disposition home or self-care (01) ==
LOC: ER 01:11
DX: S82.891A Other fracture of right lower leg, initial encounter for closed fracture (principal); I10 Essential (primary) hypertension; J44.9 Chronic obstructive pulmonary disease, unspecified; M19.90 Unspecified osteoarthritis, unspecified site; F20.9 Schizophrenia, unspecified; Z79.899 Other long term (current) drug therapy; W18.39XA Other fall on same level, initial encounter; Y93.89 Activity, other specified; Y92.89 Other specified places as the place of occurrence of the external cause; Y99.8 Other external cause status
CPT/HCPCS: 29515; 73610; 99283

== ENCOUNTER 2021-03-16 20:38 | Emergency (ER) | payer OTHER, BC ==
[~2021-03-16] VITALS: Ht 185.4 cm; Wt 108.0 kg
[~2021-03-16 20:38] MED LIST changes: +wheelchair
--- NOTE | 2021-03-16 21:46 | NUR ---
Patient presents with sister via wheelchair. Per sister, patient unable to walk and cannot get out of the chair. They are here because they want "someone to live at the house and take care of him"; [facility] discussed with patient and sister.
[2021-03-16 22:57] VITALS: BP 113/72
--- NOTE | 2021-03-16 23:06 | NUR ---
Patient sat at side of bed and used urinal. Glass of icewater given to patient and he is assisted back onto [facility], both rails up, sister bedside.
[2021-03-17] MEDS ORDERED: FURO-150 PO (18:54)
[2021-03-17] MEDS ORDERED: LORA-269 PO (19:20)
[2021-03-17] MEDS ORDERED: ESCI-8 PO (19:20)
[2021-03-17] MEDS ORDERED: TIOT4MIS3 IH (19:22)
[2021-03-17] MEDS ORDERED: ACET-1059 PO (19:30)
== END 2021-03-17 00:59 | disposition home or self-care (01) ==
LOC: ER 20:39
DX: S82.841A Displaced bimalleolar fracture of right lower leg, initial encounter for closed fracture (principal); I10 Essential (primary) hypertension; J44.9 Chronic obstructive pulmonary disease, unspecified; M19.90 Unspecified osteoarthritis, unspecified site; F20.9 Schizophrenia, unspecified; Z79.899 Other long term (current) drug therapy; X58.XXXA Exposure to other specified factors, initial encounter; Y93.89 Activity, other specified; Y92.89 Other specified places as the place of occurrence of the external cause; Y99.8 Other external cause status
CPT/HCPCS: 29515; 99283

== ENCOUNTER 2021-07-16 19:37 | Inpatient (IN) | payer OTHER, BC ==
[~2021-07-16] VITALS: Ht 182.9 cm; Wt 120.5 kg
[~2021-07-16 19:37] MED LIST changes: +ACET-1059 PO; +APIX5TAB3 PO; -CARB1DRO11 EACHEYE; +ESCI-8 PO; -ESCI5TAB17 PO; -FURO-150 PO; +LORA-269 PO; +OLAN7.5T18 PO; -OLAN7.5T9 PO; +PRED20TA PO; +TIOT4MIS3 IH; -TRAZ-251 PO; -wheelchair
[2021-07-16 20:32] LABS: BASOPHILS % (AUTO) 0.1 % (0-1); EOSINOPHILS % (AUTO) 0.6 % (0-6); HEMATOCRIT 36.6 % (42.0-52.0); HEMOGLOBIN 11.6 g/dl (14.0-17.9); LYMPHOCYTES # (AUTO) 0.9 X10'3 (1.1-4.8); LYMPHOCYTES % (AUTO) 12.8 % (21-51); MEAN CORPUSCULAR HEMOGLOBIN 31.5 PG (27.0-31.0); MEAN CORPUSCULAR HGB CONC 31.6 g/dL (33.0-36.5); MEAN CORPUSCULAR VOLUME 99.6 FL (78-98); MEAN PLATELET VOLUME 6.5 FL (7.4-10.4); MONOCYTES # (AUTO) 0.8 X10'3 (0-0.9); NEUTROPHILS % (AUTO) 74.5 % (42-75); PLATELET COUNT 148 X10'3 (140-440); RED BLOOD COUNT 3.68 X10'6 (4.70-6.10); RED CELL DISTRIBUTION WIDTH 15.2 % (11.5-14.5); WHITE BLOOD COUNT 6.8 X10'3 (4.5-11.0)
--- NOTE | 2021-07-16 20:40 | NUR ---
PT TRANSFERRED TO N/C 3LPM WITH SAT'S DIMINISHING TO 88%, PLACED N/C AT 6LPM AND IN PT'S MOUTH DUE TO HIS MOUTH BREATHING WITH IMPROVED SATS TO 95% WILL CONTINUE TO MONITOR.
--- NOTE | 2021-07-16 21:00 | NUR ---
PT BACK FROM CT, SPO2 90% ON 6 LPM N/C DOWN FROM 95% BEFORE LEAVING, SIMPLE MASK PLACED WITH SAT'S IMPROVING TO 95% ON 8LPM. AWARE.
[2021-07-16 21:01] LABS: ALANINE AMINOTRANSFERASE 44 U/L (12-78); ALBUMIN 2.9 G/DL (3.4-5.0); ALBUMIN/GLOBULIN RATIO 0.9 (1.1-1.5); ALKALINE PHOSPHATASE 58 IU/L (46-116); ANION GAP -2 (8-16); ASPARTATE AMINO TRANSFERASE 21 U/L (10-37); BILIRUBIN,TOTAL 0.8 MG/DL (0.1-1.0); BLOOD UREA NITROGEN 7 MG/DL (7-18); BUN/CREATININE RATIO 9.1 (5.4-32.0); CALCIUM 8.1 MG/DL (8.5-10.1); CHLORIDE 107 MMOL/L (99-107); CREATININE 0.77 MG/DL (0.60-1.10); GLUCOSE 107 MG/DL (70-104); POTASSIUM 4.4 MMOL/L (3.5-5.1); SODIUM 147 MMOL/L (135-145); TOTAL PROTEIN 6.3 G/DL (6.4-8.2); TROPONIN I < 0.04 NG/ML (0.0-0.05); eGFR > 90 ML/MIN
[2021-07-16 21:02] LABS: CLARITY,URINE CLEAR (Clear); COLOR,URINE YELLOW (Yellow); UA COLLECTION TYPE VOIDED
[2021-07-16 21:03] LABS: GLUCOSE, URINE NEGATIVE (Neg); KETONES,URINE NEGATIVE (Neg); LEUKOCYTE ESTERASE ,URINE NEGATIVE (Neg); NITRITES, URINE NEGATIVE (Neg); OCCULT BLOOD,URINE NEGATIVE (Neg); PROTEIN,URINE NEGATIVE (Neg); UROBILINOGEN,URINE 0.2 E.U/dL (0.2-1.0)
[2021-07-16 21:05] LABS: TOTAL CARBON DIOXIDE 41.7 MMOL/L (24-32)
[2021-07-16] MEDS ORDERED: ipratropium/albuterol 3ml nebule NEB ONE (21:15)
[2021-07-16] MEDS ORDERED: albuterol 2.5 MG/3 ML nebule NEB ONE (21:15)
[2021-07-16] MEDS ORDERED: PANT-47 PO (21:27)
[2021-07-16] MEDS ORDERED: PRED5TAB PO (21:27)
[2021-07-16] MEDS ORDERED: L. A1TAB14 (21:27)
[2021-07-16] MEDS ORDERED: APIX5TAB3 PO (21:27)
[2021-07-16] MEDS ORDERED: LACTC PO (21:27)
[2021-07-16 21:28] LABS: ABG BASE EXCESS 12.5 mmol/L (-2.0-2.0); ABG HCO3 44.7 mmol/L (22.0-26.0); ABG OXYGEN SATURATION 94.7 % (94-97); ABG PCO2 (T) 116.4 mmHg (35.0-48.0); ABG PO2 (T) 80.5 mmHg (75.0-100.0); ALLEN'S TEST POSITIVE; FCOHb 0.7 % (0.0-3.9); FMetHb 0.2 % (0.0-1.5); FO2Hb 93.8 % (94-97); PATIENT TEMPERATURE 36.7; TOTAL HEMOGLOBIN 11.7 G/dl (14.0-18.0)
[2021-07-16] MEDS ORDERED: IPRA3AMP9 IH (21:29)
[2021-07-16] MEDS ORDERED: iohexol 350MG/ML 100ml bottle IV ONE (22:47)
--- NOTE | 2021-07-16 22:48 | NUR ---
requested to speak to RN due to pt's bp into the 90's with spo2 of 84%, fio2 increased with improved saturation, repeat bp with improvement, spoke to md, will start pt on fluids and titrate fi02 to sat of 90% per MD.
[2021-07-16 23:09] LABS: ABG BASE EXCESS 18.6 mmol/L (-2.0-2.0); ABG HCO3 50.7 mmol/L (22.0-26.0); ABG OXYGEN SATURATION 88.5 % (94-97); ABG PCO2 (T) 114.4 mmHg (35.0-48.0); ABG PO2 (T) 55.9 mmHg (75.0-100.0); ALLEN'S TEST POSITIVE; FCOHb 0.5 % (0.0-3.9); FMetHb 0.1 % (0.0-1.5); PATIENT TEMPERATURE 36.2; RESPIRATORY RATE 18 b/min; TOTAL HEMOGLOBIN 11.6 G/dl (14.0-18.0)
[2021-07-17] VITALS (13 sets, daily range): BP systolic 88–128; BP diastolic 57–72
[2021-07-17 00:20] LABS: ABG BASE EXCESS 14.7 mmol/L (-2.0-2.0); ABG OXYGEN SATURATION 89.7 % (94-97); ABG PCO2 (T) 104.1 mmHg (35.0-48.0); ABG PO2 (T) 60.6 mmHg (75.0-100.0); ALLEN'S TEST POSITIVE; FCOHb 0.6 % (0.0-3.9); FO2Hb 89.2 % (94-97); PATIENT TEMPERATURE 37.1; RESPIRATORY RATE 22 b/min; TOTAL HEMOGLOBIN 12.2 G/dl (14.0-18.0)
--- NOTE | 2021-07-17 00:48 | NUR ---
PT. ANXIOUS, COACHED ON BREATHING, OFFERED WET WASHCLOTH, VERBALLY CALMED.
[2021-07-17] MEDS ORDERED: CefTRIAXone/D5W-Rocephin 1gm 50 ML IV ONE (00:55)
--- NOTE | 2021-07-17 00:55 | NUR ---
PT SCREAMING IN PAIN, REPORTS HE DOESN'T KNOW THE LAST TIME HE GOT HIS GABAPENTIN. RN TO NOTIFY MD. PT REMINDED TO USE HIS CALL LIGHT FOR NEEDS. 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 RR'S REMAIN ELEVATED, PT AGITATED, SCREAMING, BIPAP CONTINUES TO ALARM.
[2021-07-17] MEDS ORDERED: gabapentin 400mg capsule PO SCH (01:00)
[2021-07-17] MEDS ORDERED: gabapentin 400mg capsule PO ONE (01:00)
[2021-07-17] MEDS ORDERED: LORazepam 2 mg/ml vial IV ONE (01:05)
[2021-07-17] MEDS ORDERED: magnesium 4gm in 100ml NS 100 ML IV PRN (01:45)
[2021-07-17] MEDS ORDERED: magnesium 2GM in 50ml NS 50 ML IV PRN (01:45)
[2021-07-17] MEDS ORDERED: potassium Cl 20 mEq SR tablet PO PRN ×2 (01:45)
[2021-07-17] MEDS ORDERED: albuterol 2.5 MG/3 ML nebule NEB PRN (01:45)
[2021-07-17] MEDS ORDERED: acetaminophen 325mg tablet PO PRN ×2 (01:45)
[2021-07-17] MEDS ORDERED: ipratropium 0.5 MG/2.5ML nebule NEB PRN (01:45)
[2021-07-17] MEDS ORDERED: magnesium Cl slow-release 64mg tablet PO PRN (01:45)
[2021-07-17] MEDS: ringers solution, lacted 1,000 ML IV SCH ×2 (01:45→15:05)
--- NOTE | 2021-07-17 03:45 | NUR ---
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 PT REPORTS "THINGS WERE FALLING ON ME". PT PLACED BACK ON BIPAP, V/S, HOSPITAL BED ARRIVED, PT MOVED, CHANGED, CLEAN CHUX PLACED WITH NO OUTPUT NOTED. COACHED ON SAFETY AND CALL LIGHT.
[2021-07-17] MEDS: K, MAG and/or Phos replacement - Verify level? MC SCH ×2 (05:00→08:00)
[2021-07-17] MEDS ORDERED: pantoprazole 40mg Tablet.DR PO SCH (07:30)
[2021-07-17] MEDS: apixaban 5mg tablet PO SCH ×3 (08:00→20:31)
[2021-07-17] MEDS: ESCITALOPRAM OXALATE 5 MG TABLET PO SCH (08:00)
[2021-07-17] MEDS ORDERED: predniSONE 20 mg tablet PO SCH ×2 (08:00→11:26)
[2021-07-17] MEDS: famotidine 20mg tablet PO SCH ×2 (08:00→20:31)
[2021-07-17] MEDS: gabapentin 300mg capsule PO SCH ×3 (08:00→20:31)
[2021-07-17] MEDS: piperacillin/tazo 3.375gm/50ml 50 ML IV SCH ×2 (08:52→20:45)
--- NOTE | 2021-07-17 11:25 | NUR ---
Patient in room ED 1. I have received report from Lynette,garnett fixer and had the opportunity to ask questions and assume patient care.
--- NOTE | 2021-07-17 12:00 | NUR ---
received pt into room 2039, oriented to surroundings,moniter shows Afib,rate 120's,o2 @4L/NC with sao2@94%, RT @ bedside,ABGs drawn, results to
[2021-07-17 12:08] LABS: ABG BASE EXCESS 14.2 mmol/L (-2.0-2.0); ABG HCO3 41.6 mmol/L (22.0-26.0); ABG OXYGEN SATURATION 95.5 % (94-97); ABG PCO2 (T) 66.6 mmHg (35.0-48.0); ABG PO2 (T) 75.5 mmHg (75.0-100.0); ALLEN'S TEST POSITIVE; FCOHb 0.6 % (0.0-3.9); FLOW 4 L/min; FMetHb 0.1 % (0.0-1.5); FO2Hb 94.8 % (94-97); TOTAL HEMOGLOBIN 12.1 G/dl (14.0-18.0)
[2021-07-17] MEDS ORDERED: ipratropium/albuterol 3ml nebule NEB PRN (12:30)
[2021-07-17] MEDS ORDERED: amiodarone 150mg/dext, iso-os 100 ML IV ONE (13:55)
[2021-07-17 14:08] LABS: HEMOGLOBIN 11.8 g/dl (14.0-17.9); RED BLOOD COUNT 3.81 X10'6 (4.70-6.10); WHITE BLOOD COUNT 7.2 X10'3 (4.5-11.0)
[2021-07-17 14:09] LABS: BASOPHILS % (AUTO) 0.1 % (0-1); EOSINOPHILS # (AUTO) 0.1 X10'3 (0-0.9); EOSINOPHILS % (AUTO) 0.7 % (0-6); HEMATOCRIT 38.1 % (42.0-52.0); LYMPHOCYTES # (AUTO) 1.1 X10'3 (1.1-4.8); LYMPHOCYTES % (AUTO) 15.1 % (21-51); MEAN PLATELET VOLUME 6.9 FL (7.4-10.4); MONOCYTES # (AUTO) 0.7 X10'3 (0-0.9); MONOCYTES % (AUTO) 9.5 % (2-12); NEUTROPHILS # (AUTO) 5.3 X10'3 (1.8-7.7); NEUTROPHILS % (AUTO) 74.6 % (42-75); PLATELET COUNT 149 X10'3 (140-440); RED CELL DISTRIBUTION WIDTH 15.6 % (11.5-14.5)
[2021-07-17] MEDS: amiodarone/D5 360MG/200ML BAG 200 ML IV SCH ×2 (14:37→19:59)
[2021-07-17 14:38] LABS: ALANINE AMINOTRANSFERASE 38 U/L (12-78); ALBUMIN 2.8 G/DL (3.4-5.0); ALBUMIN/GLOBULIN RATIO 0.9 (1.1-1.5); ALKALINE PHOSPHATASE 57 IU/L (46-116); ANION GAP 0 (8-16); ASPARTATE AMINO TRANSFERASE 19 U/L (10-37); BILIRUBIN,TOTAL 1.4 MG/DL (0.1-1.0); BLOOD UREA NITROGEN 9 MG/DL (7-18); CALCIUM 8.2 MG/DL (8.5-10.1); CHLORIDE 105 MMOL/L (99-107); CREATININE 0.69 MG/DL (0.60-1.10); GLUCOSE 103 MG/DL (70-104); POTASSIUM 3.9 MMOL/L (3.5-5.1); SODIUM 146 MMOL/L (135-145); TOTAL PROTEIN 5.9 G/DL (6.4-8.2); eGFR > 90 ML/MIN
[2021-07-17 14:55] LABS: TOTAL CARBON DIOXIDE 40.7 MMOL/L (24-32)
[2021-07-17 18:10] LABS: MAGNESIUM 2.3 MG/DL (1.5-2.4)
[2021-07-17] MEDS ORDERED: acetaminophen w/codeine (30MG) #3 tablet PO PRN (18:10)
--- NOTE | 2021-07-17 19:01 | NUR ---
Problems reprioritized. Patient report given, questions answered & plan of care reviewed with katalina meléndez.
--- NOTE | 2021-07-17 19:05 | NUR ---
Patient in room ICU 2039. I have received report from Kyleigh GIBBS at bedside and had the opportunity to ask questions and assume patient care.
[2021-07-17] MEDS: ipratropium/albuterol 3ml nebule IH SCH ×2 (20:00→23:04)
[2021-07-17] MEDS ORDERED: apixaban 5mg tablet PO SCH (20:00)
[2021-07-17] MEDS ORDERED: lactobacillus acidophilus cap PO SCH (20:00)
[2021-07-17] MEDS: lactobacillus rhamnosus 10,000 MMU CELLS/CAPSULE PO SCH (20:31)
[2021-07-17] MEDS: OLANZapine 2.5MG tablet PO SCH (20:32)
[2021-07-17] MEDS ORDERED: non-formulary drug (Olanzapine 1 TAB) PO SCH (21:00)
[2021-07-17] MEDS ORDERED: OLANZapine 2.5MG tablet PO SCH (21:00)
--- NOTE | 2021-07-17 23:25 | NUR ---
Patient converted back to sinus rhythm around 2300
[2021-07-18] VITALS (19 sets, daily range): BP systolic 96–130; BP diastolic 48–71
[2021-07-18] MEDS: ipratropium/albuterol 3ml nebule IH SCH ×6 (03:02→23:06)
[2021-07-18] MEDS: ringers solution, lacted 1,000 ML IV SCH (03:51)
[2021-07-18 06:03] LABS: BASOPHILS # (AUTO) 0.1 X10'3 (0-0.2); EOSINOPHILS % (AUTO) 0.4 % (0-6); HEMATOCRIT 34.7 % (42.0-52.0); HEMOGLOBIN 10.9 g/dl (14.0-17.9); LYMPHOCYTES # (AUTO) 0.3 X10'3 (1.1-4.8); LYMPHOCYTES % (AUTO) 6.2 % (21-51); MEAN CORPUSCULAR HEMOGLOBIN 31.1 PG (27.0-31.0); MEAN CORPUSCULAR HGB CONC 31.5 g/dL (33.0-36.5); MEAN CORPUSCULAR VOLUME 98.6 FL (78-98); MONOCYTES # (AUTO) 0.4 X10'3 (0-0.9); MONOCYTES % (AUTO) 6.8 % (2-12); NEUTROPHILS # (AUTO) 4.8 X10'3 (1.8-7.7); NEUTROPHILS % (AUTO) 85.6 % (42-75); PLATELET COUNT 139 X10'3 (140-440); RED BLOOD COUNT 3.52 X10'6 (4.70-6.10); RED CELL DISTRIBUTION WIDTH 15.2 % (11.5-14.5); WHITE BLOOD COUNT 5.6 X10'3 (4.5-11.0)
--- NOTE | 2021-07-18 06:24 | NUR ---
Problems reprioritized. Patient report given, questions answered & plan of care reviewed with Gem RN at bedside.
[2021-07-18 06:41] LABS: ALANINE AMINOTRANSFERASE 33 U/L (12-78); ALBUMIN 2.4 G/DL (3.4-5.0); ALBUMIN/GLOBULIN RATIO 0.8 (1.1-1.5); ALKALINE PHOSPHATASE 54 IU/L (46-116); ANION GAP 1 (8-16); ASPARTATE AMINO TRANSFERASE 13 U/L (10-37); BILIRUBIN,DIRECT 0.2 MG/DL (0-0.3); BILIRUBIN,TOTAL 0.7 MG/DL (0.1-1.0); BLOOD UREA NITROGEN 8 MG/DL (7-18); BUN/CREATININE RATIO 11.4 (5.4-32.0); CALCIUM 8.2 MG/DL (8.5-10.1); CHLORIDE 107 MMOL/L (99-107); GLUCOSE 133 MG/DL (70-104); MAGNESIUM 2.3 MG/DL (1.5-2.4); PHOSPHORUS 4.1 MG/DL (2.3-4.5); POTASSIUM 4.5 MMOL/L (3.5-5.1); SODIUM 147 MMOL/L (135-145); TOTAL CARBON DIOXIDE 38.7 MMOL/L (24-32); TOTAL PROTEIN 5.5 G/DL (6.4-8.2); eGFR > 90 ML/MIN
--- NOTE | 2021-07-18 06:55 | NUR ---
Patient in room ICU 2039. I have received report from BERNIE BURTON, and had the opportunity to ask questions and assume patient care.
[2021-07-18] MEDS: ESCITALOPRAM OXALATE 5 MG TABLET PO SCH (07:44)
[2021-07-18] MEDS: famotidine 20mg tablet PO SCH (07:45)
[2021-07-18] MEDS: lactobacillus rhamnosus 10,000 MMU CELLS/CAPSULE PO SCH ×2 (07:45→21:27)
[2021-07-18] MEDS: predniSONE 5mg tablet PO SCH (07:45)
[2021-07-18] MEDS: apixaban 5mg tablet PO SCH ×2 (07:45→21:28)
[2021-07-18] MEDS: amiodarone 200mg tablet PO SCH ×2 (07:45→21:28)
[2021-07-18] MEDS: gabapentin 300mg capsule PO SCH ×3 (07:46→21:27)
[2021-07-18] MEDS: pantoprazole 40mg Tablet.DR PO SCH (07:46)
[2021-07-18] MEDS: calcium carbonate 500mg tablet PO SCH (07:47)
[2021-07-18] MEDS: K, MAG and/or Phos replacement - Verify level? MC SCH (08:00)
[2021-07-18] MEDS ORDERED: non-formulary drug (Escitalopram Oxalate 1 TAB) PO SCH (08:00)
[2021-07-18] MEDS: (Tiotropium Br/Olodaterol HCl (Stiolto Respimat Inhal Spray) IH SCH (08:00)
[2021-07-18] MEDS: piperacillin/tazo 3.375gm/50ml 50 ML IV SCH ×2 (09:55→21:27)
--- NOTE | 2021-07-18 11:21 | NUR ---
Malnutrition consult: Pt admitted s/p fall and dx of respiratory failure per EMR. Observed pt at bedside w/ no signs of visible muscle waisting. Pt states his appetite is good and he has been eating well; states he has been admitted to different facilities over the past ~100days. Pt wt consistent w/ wt from previous admits in June and March of this year. No edema note. At this time pt does not meet minimum criteria for malnutrition, will continue to monitor. Addendum: 07/18/21 at [address] Amended: Links added.
--- NOTE | 2021-07-18 15:40 | NUR ---
Patient in room PCU 3028. I have received report from ROBSON GIBBS and had the opportunity to ask questions and assume patient care.
--- NOTE | 2021-07-18 15:40 | NUR ---
Problems reprioritized. Patient report given, questions answered & plan of care reviewed with BERNIE VELASCO.
--- NOTE | 2021-07-18 16:02 | NUR ---
GOT NOTIFIED BY THE AIDES AT 1600 THAT WE WILL HAVE TO DO OUR OWN VITALS FOR 1500. PT RATIOS HAVE BEEN 5:1 ALL DAY. UNABLE TO COMPLETE TASK SAFELY.
--- NOTE | 2021-07-18 18:55 | NUR ---
Patient in room PCU 3028. I have received report from Brandon GIBBS and had the opportunity to ask questions and assume patient care.
--- NOTE | 2021-07-18 18:55 | NUR ---
Problems reprioritized. Patient report given, questions answered & plan of care reviewed with ARLET GIBBS.
[2021-07-18] MEDS: OLANZapine 2.5MG tablet PO SCH (21:28)
[2021-07-19] MEDS ORDERED: polyethylene glycol 3350 17gm powd pack PO PRN (01:45)
[2021-07-19 02:00] VITALS: BP 104/53
[2021-07-19] MEDS: ipratropium/albuterol 3ml nebule IH SCH ×6 (03:08→23:30)
[2021-07-19 06:05] LABS: BASOPHILS % (AUTO) 0.2 % (0-1); EOSINOPHILS # (AUTO) 0.1 X10'3 (0-0.9); EOSINOPHILS % (AUTO) 1.7 % (0-6); HEMATOCRIT 33.3 % (42.0-52.0); HEMOGLOBIN 10.5 g/dl (14.0-17.9); LYMPHOCYTES # (AUTO) 1.2 X10'3 (1.1-4.8); LYMPHOCYTES % (AUTO) 20.7 % (21-51); MEAN CORPUSCULAR HEMOGLOBIN 30.9 PG (27.0-31.0); MEAN CORPUSCULAR HGB CONC 31.5 g/dL (33.0-36.5); MEAN CORPUSCULAR VOLUME 98.2 FL (78-98); MEAN PLATELET VOLUME 7.1 FL (7.4-10.4); MONOCYTES # (AUTO) 0.7 X10'3 (0-0.9); MONOCYTES % (AUTO) 11.1 % (2-12); NEUTROPHILS % (AUTO) 66.3 % (42-75); PLATELET COUNT 155 X10'3 (140-440); RED BLOOD COUNT 3.39 X10'6 (4.70-6.10); RED CELL DISTRIBUTION WIDTH 15.5 % (11.5-14.5)
--- NOTE | 2021-07-19 06:10 | NUR ---
Problems reprioritized. Patient report given, questions answered & plan of care reviewed with Linda GIBBS.
--- NOTE | 2021-07-19 06:13 | NUR ---
Patient in room PCU 3028. I have received report from BERNIE Azar and had the opportunity to ask questions and assume patient care.
[2021-07-19 06:26] LABS: ALANINE AMINOTRANSFERASE 31 U/L (12-78); ALBUMIN 2.5 G/DL (3.4-5.0); ALBUMIN/GLOBULIN RATIO 0.8 (1.1-1.5); ALKALINE PHOSPHATASE 50 IU/L (46-116); ANION GAP 3 (8-16); ASPARTATE AMINO TRANSFERASE 10 U/L (10-37); BILIRUBIN,TOTAL 0.5 MG/DL (0.1-1.0); BLOOD UREA NITROGEN 7 MG/DL (7-18); CALCIUM 8.2 MG/DL (8.5-10.1); CHLORIDE 109 MMOL/L (99-107); CREATININE 0.78 MG/DL (0.60-1.10); GLUCOSE 87 MG/DL (70-104); MAGNESIUM 2.3 MG/DL (1.5-2.4); PHOSPHORUS 5.1 MG/DL (2.3-4.5); POTASSIUM 3.9 MMOL/L (3.5-5.1); SODIUM 152 MMOL/L (135-145); TOTAL PROTEIN 5.6 G/DL (6.4-8.2); eGFR > 90 ML/MIN
[2021-07-19 07:00] VITALS: BP 110/61
--- NOTE | 2021-07-19 07:18 | NUR ---
Pageaamir Marcus with a critical PAGER ID: [phone] MESSAGE: Truman Alfonso [id number] Critical venous C02 40.0, up from 38.7. Thanks Linda CEDILLO [phone]
[2021-07-19] MEDS: K, MAG and/or Phos replacement - Verify level? MC SCH (08:00)
[2021-07-19] MEDS: (Tiotropium Br/Olodaterol HCl (Stiolto Respimat Inhal Spray) IH SCH (08:00)
[2021-07-19] MEDS: pantoprazole 40mg Tablet.DR PO SCH (09:03)
[2021-07-19] MEDS: gabapentin 300mg capsule PO SCH ×3 (09:03→21:50)
[2021-07-19] MEDS: piperacillin/tazo 3.375gm/50ml 50 ML IV SCH ×2 (09:03→21:49)
[2021-07-19] MEDS: amiodarone 200mg tablet PO SCH ×2 (09:04→21:50)
[2021-07-19] MEDS: apixaban 5mg tablet PO SCH ×2 (09:04→21:50)
[2021-07-19] MEDS: predniSONE 5mg tablet PO SCH (09:04)
[2021-07-19] MEDS: ESCITALOPRAM OXALATE 5 MG TABLET PO SCH (09:04)
[2021-07-19] MEDS: lactobacillus rhamnosus 10,000 MMU CELLS/CAPSULE PO SCH ×2 (09:04→21:49)
[2021-07-19] MEDS: calcium carbonate 500mg tablet PO SCH (09:04)
[2021-07-19 11:00] VITALS: BP 109/58
[2021-07-19 15:00] VITALS: BP 105/53
[2021-07-19 18:00] VITALS: BP 107/45
--- NOTE | 2021-07-19 18:22 | NUR ---
Problems reprioritized. Patient report given, questions answered & plan of care reviewed with BERNIE Azar. Pt sitting up in bed resting comfortably at change of shift. All pt needs met at this time.
--- NOTE | 2021-07-19 18:25 | NUR ---
Patient in room PCU 3028. I have received report from Linda GIBBS and had the opportunity to ask questions and assume patient care.
[2021-07-19] MEDS: OLANZapine 2.5MG tablet PO SCH (21:52)
[2021-07-19 22:00] VITALS: BP 96/51
[2021-07-20 02:00] VITALS: BP 94/52
[2021-07-20] MEDS: ipratropium/albuterol 3ml nebule IH SCH ×6 (02:57→22:53)
--- NOTE | 2021-07-20 06:10 | NUR ---
Report given to Linda GIBBS.
--- NOTE | 2021-07-20 06:16 | NUR ---
Patient in room PCU 3028. I have received report from BERNIE Azar and had the opportunity to ask questions and assume patient care.
[2021-07-20 06:47] LABS: BASOPHILS % (AUTO) 0.1 % (0-1); EOSINOPHILS # (AUTO) 0.1 X10'3 (0-0.9); EOSINOPHILS % (AUTO) 1.7 % (0-6); HEMATOCRIT 35.3 % (42.0-52.0); HEMOGLOBIN 11.1 g/dl (14.0-17.9); LYMPHOCYTES # (AUTO) 0.9 X10'3 (1.1-4.8); LYMPHOCYTES % (AUTO) 16.4 % (21-51); MEAN CORPUSCULAR HEMOGLOBIN 31.7 PG (27.0-31.0); MEAN CORPUSCULAR HGB CONC 31.6 g/dL (33.0-36.5); MEAN CORPUSCULAR VOLUME 100.4 FL (78-98); MEAN PLATELET VOLUME 6.8 FL (7.4-10.4); MONOCYTES # (AUTO) 0.7 X10'3 (0-0.9); NEUTROPHILS # (AUTO) 3.8 X10'3 (1.8-7.7); NEUTROPHILS % (AUTO) 68.8 % (42-75); PLATELET COUNT 164 X10'3 (140-440); RED BLOOD COUNT 3.51 X10'6 (4.70-6.10); RED CELL DISTRIBUTION WIDTH 15.9 % (11.5-14.5); WHITE BLOOD COUNT 5.6 X10'3 (4.5-11.0)
[2021-07-20 07:00] VITALS: BP 113/52
[2021-07-20 07:18] LABS: ALANINE AMINOTRANSFERASE 33 U/L (12-78); ALBUMIN 2.6 G/DL (3.4-5.0); ALBUMIN/GLOBULIN RATIO 0.8 (1.1-1.5); ALKALINE PHOSPHATASE 53 IU/L (46-116); ANION GAP -1 (8-16); ASPARTATE AMINO TRANSFERASE 14 U/L (10-37); BILIRUBIN,TOTAL 0.6 MG/DL (0.1-1.0); BLOOD UREA NITROGEN 7 MG/DL (7-18); BUN/CREATININE RATIO 8.9 (5.4-32.0); CALCIUM 8.6 MG/DL (8.5-10.1); CHLORIDE 105 MMOL/L (99-107); CREATININE 0.79 MG/DL (0.60-1.10); GLUCOSE 91 MG/DL (70-104); MAGNESIUM 2.4 MG/DL (1.5-2.4); PHOSPHORUS 5.6 MG/DL (2.3-4.5); SODIUM 145 MMOL/L (135-145); eGFR > 90 ML/MIN
[2021-07-20 07:21] LABS: TOTAL CARBON DIOXIDE 41.3 MMOL/L (24-32)
--- NOTE | 2021-07-20 07:26 | NUR ---
Paged Dr Amrit Reynolds Critical PAGER ID: [phone] MESSAGE: Truman Alfonso [id number] Critical venous C02 41.3 up from 40.0. I paged RT re stat ABG. Thanks Linda [facility] [phone]
--- NOTE | 2021-07-20 07:30 | NUR ---
Paged RT Truman Ramey RM [id number] stat ABG needed. Thanks!
[2021-07-20 07:47] LABS: ABG HCO3 55.7 mmol/L (22.0-26.0); ABG OXYGEN SATURATION 92.1 % (94-97); ABG PCO2 (T) 125.6 mmHg (35.0-48.0); ABG PO2 (T) 65.7 mmHg (75.0-100.0); ALLEN'S TEST POSITIVE; FCOHb 0.1 % (0.0-3.9); FLOW 2 L/min; FMetHb 0.2 % (0.0-1.5); FO2Hb 91.8 % (94-97); PATIENT TEMPERATURE 36.8; TOTAL HEMOGLOBIN 11.8 G/dl (14.0-18.0)
--- NOTE | 2021-07-20 07:53 | NUR ---
Paged Dr Amrit KIMBROUGH PAGER ID: [phone] MESSAGE: Truman Alfonso [id number] PH 7.261 C02 126.7 Hc03 55.7. Can I get a Bipap order please? Thanks Linda [phone]
[2021-07-20] MEDS: (Tiotropium Br/Olodaterol HCl (Stiolto Respimat Inhal Spray) IH SCH (08:00)
[2021-07-20] MEDS: K, MAG and/or Phos replacement - Verify level? MC SCH (08:00)
[2021-07-20] MEDS: apixaban 5mg tablet PO SCH ×2 (08:48→21:33)
[2021-07-20] MEDS: predniSONE 5mg tablet PO SCH (08:48)
[2021-07-20] MEDS: lactobacillus rhamnosus 10,000 MMU CELLS/CAPSULE PO SCH ×2 (08:48→21:33)
[2021-07-20] MEDS: amiodarone 200mg tablet PO SCH ×2 (08:48→21:20)
[2021-07-20] MEDS: gabapentin 300mg capsule PO SCH ×3 (08:49→21:20)
[2021-07-20] MEDS: calcium carbonate 500mg tablet PO SCH (08:49)
[2021-07-20] MEDS: ESCITALOPRAM OXALATE 5 MG TABLET PO SCH (08:49)
[2021-07-20] MEDS: pantoprazole 40mg Tablet.DR PO SCH (08:49)
[2021-07-20 11:00] VITALS: BP 99/55
[2021-07-20] MEDS: piperacillin/tazo 3.375gm/50ml 50 ML IV SCH ×2 (12:26→21:20)
--- NOTE | 2021-07-20 12:44 | NUR ---
Truman Conner [id number] wants repeat ABG. Thanks Linda CEDILLO
[2021-07-20 13:27] LABS: ABG BASE EXCESS 16.6 mmol/L (-2.0-2.0); ABG HCO3 45.9 mmol/L (22.0-26.0); ABG OXYGEN SATURATION 96.3 % (94-97); ABG PCO2 (T) 84.9 mmHg (35.0-48.0); ABG PO2 (T) 84.9 mmHg (75.0-100.0); ALLEN'S TEST POSITIVE; FCOHb 0.3 % (0.0-3.9); FMetHb 0.3 % (0.0-1.5); FO2Hb 95.7 % (94-97); PATIENT TEMPERATURE 36.8; RESPIRATORY RATE 18 b/min; TOTAL HEMOGLOBIN 11.5 G/dl (14.0-18.0)
--- NOTE | 2021-07-20 13:42 | NUR ---
PAGER ID: [phone] MESSAGE: [id number] [facility] RESULTS IN. PH 7.34, PCO2 85.6, HCO3 45.9, PO2 86.0 [facility]
[2021-07-20 15:00] VITALS: BP 132/56
[2021-07-20 18:00] VITALS: BP 123/70
--- NOTE | 2021-07-20 18:24 | NUR ---
Problems reprioritized. Patient report given, questions answered & plan of care reviewed with BERNIE Canales. Pt sitting on edge of bed eating dinner independently. All pt needs met at this time.
[2021-07-20] MEDS: OLANZapine 2.5MG tablet PO SCH (21:40)
[2021-07-20 22:00] VITALS: BP 102/50
[2021-07-21 02:00] VITALS: BP 92/51
[2021-07-21] MEDS: ipratropium/albuterol 3ml nebule IH SCH ×6 (02:13→23:57)
[2021-07-21 06:23] LABS: BASOPHILS % (AUTO) 0.2 % (0-1); EOSINOPHILS # (AUTO) 0.1 X10'3 (0-0.9); HEMATOCRIT 33.5 % (42.0-52.0); HEMOGLOBIN 10.7 g/dl (14.0-17.9); LYMPHOCYTES % (AUTO) 19.8 % (21-51); MEAN CORPUSCULAR HEMOGLOBIN 31.6 PG (27.0-31.0); MEAN CORPUSCULAR HGB CONC 31.8 g/dL (33.0-36.5); MEAN CORPUSCULAR VOLUME 99.5 FL (78-98); MEAN PLATELET VOLUME 6.9 FL (7.4-10.4); MONOCYTES # (AUTO) 0.8 X10'3 (0-0.9); NEUTROPHILS # (AUTO) 3.2 X10'3 (1.8-7.7); PLATELET COUNT 153 X10'3 (140-440); RED BLOOD COUNT 3.37 X10'6 (4.70-6.10); RED CELL DISTRIBUTION WIDTH 15.6 % (11.5-14.5); WHITE BLOOD COUNT 5.1 X10'3 (4.5-11.0)
[2021-07-21 06:27] LABS: ALANINE AMINOTRANSFERASE 37 U/L (12-78); ALBUMIN 2.5 G/DL (3.4-5.0); ALBUMIN/GLOBULIN RATIO 0.8 (1.1-1.5); ALKALINE PHOSPHATASE 51 IU/L (46-116); ANION GAP -1 (8-16); ASPARTATE AMINO TRANSFERASE 19 U/L (10-37); BILIRUBIN,TOTAL 0.7 MG/DL (0.1-1.0); BLOOD UREA NITROGEN 8 MG/DL (7-18); BUN/CREATININE RATIO 10.8 (5.4-32.0); CALCIUM 8.4 MG/DL (8.5-10.1); CHLORIDE 105 MMOL/L (99-107); CREATININE 0.74 MG/DL (0.60-1.10); GLUCOSE 90 MG/DL (70-104); MAGNESIUM 2.4 MG/DL (1.5-2.4); PHOSPHORUS 3.6 MG/DL (2.3-4.5); POTASSIUM 3.9 MMOL/L (3.5-5.1); SODIUM 146 MMOL/L (135-145); TOTAL PROTEIN 5.6 G/DL (6.4-8.2); eGFR > 90 ML/MIN
--- NOTE | 2021-07-21 06:29 | NUR ---
Problems reprioritized. Patient report given, questions answered & plan of care reviewed with Luz Elena RN.
[2021-07-21 06:31] LABS: TOTAL CARBON DIOXIDE 42.3 MMOL/L (24-32)
[2021-07-21 07:00] VITALS: BP 102/65
[2021-07-21] MEDS: K, MAG and/or Phos replacement - Verify level? MC SCH (08:00)
[2021-07-21] MEDS: (Tiotropium Br/Olodaterol HCl (Stiolto Respimat Inhal Spray) IH SCH (08:00)
[2021-07-21] MEDS: piperacillin/tazo 3.375gm/50ml 50 ML IV SCH ×2 (09:37→21:50)
[2021-07-21] MEDS: pantoprazole 40mg Tablet.DR PO SCH (09:37)
[2021-07-21] MEDS: amiodarone 200mg tablet PO SCH ×2 (09:37→21:50)
[2021-07-21] MEDS: apixaban 5mg tablet PO SCH ×2 (09:38→20:00)
[2021-07-21] MEDS: lactobacillus rhamnosus 10,000 MMU CELLS/CAPSULE PO SCH ×2 (09:38→21:51)
[2021-07-21] MEDS: calcium carbonate 500mg tablet PO SCH (09:38)
[2021-07-21] MEDS: gabapentin 300mg capsule PO SCH ×3 (09:38→21:50)
[2021-07-21] MEDS: ESCITALOPRAM OXALATE 5 MG TABLET PO SCH (09:39)
[2021-07-21] MEDS: predniSONE 5mg tablet PO SCH (09:39)
[2021-07-21 11:00] VITALS: BP 108/65
--- NOTE | 2021-07-21 11:55 | NUR ---
Initial: Pt admit for acute on chronic respiratory failure with hypoxia and hypercapnia and COPD exacerbation. Pt on a regular diet and eating well, documented with 100% PO intake throughout LOS. [facility] 07/18, with PRN bowel care available. No nutrition diagnosis at this time. Will continue to follow and make recommendations as appropriate. Recommendations: 1) Continue regular diet 2) Monitor need for additional protein for satiety 3) Routine bowel care 4) Scaled weights per rx Addendum: 07/21/21 at [address] Amended: Links added.
[2021-07-21 12:07] LABS: ABG BASE EXCESS 16.6 mmol/L (-2.0-2.0); ABG HCO3 46.3 mmol/L (22.0-26.0); ABG OXYGEN SATURATION 93.1 % (94-97); ABG PO2 (T) 67.7 mmHg (75.0-100.0); ALLEN'S TEST POSITIVE; FCOHb 0.2 % (0.0-3.9); FLOW 4 L/min; FO2Hb 92.9 % (94-97); TOTAL HEMOGLOBIN 12.2 G/dl (14.0-18.0)
[2021-07-21 15:00] VITALS: BP 70/60
[2021-07-21 19:00] VITALS: BP 100/51
[2021-07-21] MEDS: OLANZapine 2.5MG tablet PO SCH (21:50)
[2021-07-21 23:00] VITALS: BP 125/57
[2021-07-22] VITALS (9 sets, daily range): BP systolic 86–121; BP diastolic 48–78
[2021-07-22] MEDS: ipratropium/albuterol 3ml nebule IH SCH ×5 (03:00→19:53)
[2021-07-22 06:26] LABS: ALANINE AMINOTRANSFERASE 40 U/L (12-78); ALBUMIN 2.5 G/DL (3.4-5.0); ALBUMIN/GLOBULIN RATIO 0.8 (1.1-1.5); ALKALINE PHOSPHATASE 52 IU/L (46-116); ANION GAP 0 (8-16); ASPARTATE AMINO TRANSFERASE 21 U/L (10-37); BILIRUBIN,TOTAL 0.6 MG/DL (0.1-1.0); BLOOD UREA NITROGEN 9 MG/DL (7-18); BUN/CREATININE RATIO 11.1 (5.4-32.0); CALCIUM 8.4 MG/DL (8.5-10.1); CHLORIDE 105 MMOL/L (99-107); CREATININE 0.81 MG/DL (0.60-1.10); GLUCOSE 93 MG/DL (70-104); MAGNESIUM 2.4 MG/DL (1.5-2.4); PHOSPHORUS 4.4 MG/DL (2.3-4.5); POTASSIUM 4.1 MMOL/L (3.5-5.1); SODIUM 147 MMOL/L (135-145); TOTAL PROTEIN 5.8 G/DL (6.4-8.2); eGFR > 90 ML/MIN
[2021-07-22 06:27] LABS: BASOPHILS % (AUTO) 0.2 % (0-1); EOSINOPHILS # (AUTO) 0.1 X10'3 (0-0.9); EOSINOPHILS % (AUTO) 1.8 % (0-6); HEMATOCRIT 33.4 % (42.0-52.0); HEMOGLOBIN 10.9 g/dl (14.0-17.9); LYMPHOCYTES # (AUTO) 1.1 X10'3 (1.1-4.8); LYMPHOCYTES % (AUTO) 20.6 % (21-51); MEAN CORPUSCULAR HEMOGLOBIN 31.7 PG (27.0-31.0); MEAN CORPUSCULAR HGB CONC 32.5 g/dL (33.0-36.5); MEAN CORPUSCULAR VOLUME 97.6 FL (78-98); MEAN PLATELET VOLUME 6.8 FL (7.4-10.4); MONOCYTES # (AUTO) 0.7 X10'3 (0-0.9); MONOCYTES % (AUTO) 12.2 % (2-12); NEUTROPHILS # (AUTO) 3.6 X10'3 (1.8-7.7); NEUTROPHILS % (AUTO) 65.2 % (42-75); PLATELET COUNT 162 X10'3 (140-440); RED BLOOD COUNT 3.42 X10'6 (4.70-6.10); RED CELL DISTRIBUTION WIDTH 15.2 % (11.5-14.5); WHITE BLOOD COUNT 5.6 X10'3 (4.5-11.0)
[2021-07-22 06:48] LABS: TOTAL CARBON DIOXIDE 41.6 MMOL/L (24-32)
[2021-07-22] MEDS: (Tiotropium Br/Olodaterol HCl (Stiolto Respimat Inhal Spray) IH SCH (08:00)
[2021-07-22] MEDS: K, MAG and/or Phos replacement - Verify level? MC SCH (08:00)
[2021-07-22] MEDS: lactobacillus rhamnosus 10,000 MMU CELLS/CAPSULE PO SCH ×2 (08:44→19:55)
[2021-07-22] MEDS: apixaban 5mg tablet PO SCH ×2 (08:45→19:56)
[2021-07-22] MEDS: pantoprazole 40mg Tablet.DR PO SCH (08:48)
[2021-07-22] MEDS: gabapentin 300mg capsule PO SCH ×3 (08:48→21:16)
[2021-07-22] MEDS: ESCITALOPRAM OXALATE 5 MG TABLET PO SCH (08:48)
[2021-07-22] MEDS: calcium carbonate 500mg tablet PO SCH (08:48)
[2021-07-22] MEDS: amiodarone 200mg tablet PO SCH ×2 (08:48→19:55)
[2021-07-22] MEDS: piperacillin/tazo 3.375gm/50ml 50 ML IV SCH ×2 (08:49→21:17)
[2021-07-22] MEDS: predniSONE 5mg tablet PO SCH (09:02)
[2021-07-22] MEDS: OLANZapine 2.5MG tablet PO SCH (21:16)
[2021-07-23] MEDS: ipratropium/albuterol 3ml nebule IH SCH ×7 (00:12→23:37)
--- NOTE | 2021-07-23 03:51 | NUR ---
Pt in bed resting no signs of distress noted will continue to monitor and report changes
[2021-07-23 05:28] VITALS: BP 99/55
[2021-07-23 06:23] LABS: BASOPHILS % (AUTO) 0.1 % (0-1); EOSINOPHILS # (AUTO) 0.1 X10'3 (0-0.9); EOSINOPHILS % (AUTO) 1.6 % (0-6); HEMATOCRIT 33.3 % (42.0-52.0); HEMOGLOBIN 10.6 g/dl (14.0-17.9); LYMPHOCYTES # (AUTO) 1.1 X10'3 (1.1-4.8); LYMPHOCYTES % (AUTO) 17.5 % (21-51); MEAN CORPUSCULAR HEMOGLOBIN 31.3 PG (27.0-31.0); MEAN CORPUSCULAR HGB CONC 31.7 g/dL (33.0-36.5); MEAN CORPUSCULAR VOLUME 98.7 FL (78-98); MEAN PLATELET VOLUME 6.9 FL (7.4-10.4); MONOCYTES # (AUTO) 0.8 X10'3 (0-0.9); MONOCYTES % (AUTO) 13.6 % (2-12); NEUTROPHILS # (AUTO) 4.1 X10'3 (1.8-7.7); NEUTROPHILS % (AUTO) 67.2 % (42-75); PLATELET COUNT 162 X10'3 (140-440); RED BLOOD COUNT 3.38 X10'6 (4.70-6.10); RED CELL DISTRIBUTION WIDTH 14.9 % (11.5-14.5); WHITE BLOOD COUNT 6.1 X10'3 (4.5-11.0)
[2021-07-23 06:33] LABS: ALANINE AMINOTRANSFERASE 31 U/L (12-78); ALBUMIN 2.5 G/DL (3.4-5.0); ALBUMIN/GLOBULIN RATIO 0.8 (1.1-1.5); ALKALINE PHOSPHATASE 51 IU/L (46-116); ANION GAP -1 (8-16); ASPARTATE AMINO TRANSFERASE 15 U/L (10-37); BILIRUBIN,TOTAL 0.6 MG/DL (0.1-1.0); BLOOD UREA NITROGEN 11 MG/DL (7-18); BUN/CREATININE RATIO 12.5 (5.4-32.0); CALCIUM 8.4 MG/DL (8.5-10.1); CHLORIDE 105 MMOL/L (99-107); CREATININE 0.88 MG/DL (0.60-1.10); GLUCOSE 89 MG/DL (70-104); MAGNESIUM 2.3 MG/DL (1.5-2.4); PHOSPHORUS 3.6 MG/DL (2.3-4.5); POTASSIUM 3.8 MMOL/L (3.5-5.1); SODIUM 145 MMOL/L (135-145); TOTAL PROTEIN 5.7 G/DL (6.4-8.2); eGFR 85 ML/MIN
--- NOTE | 2021-07-23 06:33 | NUR ---
Patient in room PCU 3028. I have received report from Gloria GIBBS and had the opportunity to ask questions and assume patient care.
[2021-07-23 06:36] LABS: TOTAL CARBON DIOXIDE 41.3 MMOL/L (24-32)
--- NOTE | 2021-07-23 06:36 | NUR ---
Problems reprioritized. Patient report given, questions answered & plan of care reviewed with Melissa GIBBS .
[2021-07-23 07:00] VITALS: BP 98/50
--- NOTE | 2021-07-23 07:26 | NUR ---
PAGER ID: [phone] MESSAGE: Rickey CEDILLO [phone]. Pt Kierra 6100B Critical CO2 of 41.3, yesterday was 41.6. Thank you
[2021-07-23] MEDS: (Tiotropium Br/Olodaterol HCl (Stiolto Respimat Inhal Spray) IH SCH (08:00)
[2021-07-23] MEDS: K, MAG and/or Phos replacement - Verify level? MC SCH (08:00)
[2021-07-23] MEDS: predniSONE 5mg tablet PO SCH (08:35)
[2021-07-23] MEDS: gabapentin 300mg capsule PO SCH ×3 (08:35→20:42)
[2021-07-23] MEDS: ESCITALOPRAM OXALATE 5 MG TABLET PO SCH (08:35)
[2021-07-23] MEDS: piperacillin/tazo 3.375gm/50ml 50 ML IV SCH ×2 (08:35→20:42)
[2021-07-23] MEDS: apixaban 5mg tablet PO SCH ×2 (08:35→20:42)
[2021-07-23] MEDS: calcium carbonate 500mg tablet PO SCH (08:35)
[2021-07-23] MEDS: amiodarone 200mg tablet PO SCH ×2 (08:35→20:42)
[2021-07-23] MEDS: lactobacillus rhamnosus 10,000 MMU CELLS/CAPSULE PO SCH ×2 (08:35→20:42)
[2021-07-23] MEDS: pantoprazole 40mg Tablet.DR PO SCH (08:35)
[2021-07-23 12:11] VITALS: BP 101/45
[2021-07-23 15:00] VITALS: BP 103/51
--- NOTE | 2021-07-23 18:15 | NUR ---
Patient in room PCU 3028. I have received report from Melissa GIBBS, and had the opportunity to ask questions and assume patient care.
--- NOTE | 2021-07-23 18:16 | NUR ---
Problems reprioritized. Patient report given, questions answered & plan of care reviewed with Niesha GIBBS.
[2021-07-23] MEDS: OLANZapine 2.5MG tablet PO SCH (20:42)
[2021-07-24] MEDS: ipratropium/albuterol 3ml nebule IH SCH ×4 (02:50→14:56)
[2021-07-24 06:10] LABS: BASOPHILS % (AUTO) 0.2 % (0-1); EOSINOPHILS # (AUTO) 0.1 X10'3 (0-0.9); EOSINOPHILS % (AUTO) 1.6 % (0-6); HEMATOCRIT 34.7 % (42.0-52.0); HEMOGLOBIN 10.9 g/dl (14.0-17.9); LYMPHOCYTES # (AUTO) 1.1 X10'3 (1.1-4.8); LYMPHOCYTES % (AUTO) 19.3 % (21-51); MEAN CORPUSCULAR HEMOGLOBIN 31.2 PG (27.0-31.0); MEAN CORPUSCULAR HGB CONC 31.5 g/dL (33.0-36.5); MEAN CORPUSCULAR VOLUME 99.2 FL (78-98); MEAN PLATELET VOLUME 6.8 FL (7.4-10.4); MONOCYTES # (AUTO) 0.8 X10'3 (0-0.9); MONOCYTES % (AUTO) 13.1 % (2-12); NEUTROPHILS # (AUTO) 3.9 X10'3 (1.8-7.7); NEUTROPHILS % (AUTO) 65.8 % (42-75); PLATELET COUNT 163 X10'3 (140-440); RED CELL DISTRIBUTION WIDTH 15.2 % (11.5-14.5); WHITE BLOOD COUNT 5.9 X10'3 (4.5-11.0)
[2021-07-24 06:22] LABS: ALANINE AMINOTRANSFERASE 29 U/L (12-78); ALBUMIN 2.5 G/DL (3.4-5.0); ALBUMIN/GLOBULIN RATIO 0.7 (1.1-1.5); ALKALINE PHOSPHATASE 51 IU/L (46-116); ANION GAP 2 (8-16); ASPARTATE AMINO TRANSFERASE 13 U/L (10-37); BILIRUBIN,TOTAL 0.6 MG/DL (0.1-1.0); BLOOD UREA NITROGEN 13 MG/DL (7-18); CALCIUM 8.6 MG/DL (8.5-10.1); CHLORIDE 105 MMOL/L (99-107); CREATININE 0.93 MG/DL (0.60-1.10); GLUCOSE 87 MG/DL (70-104); MAGNESIUM 2.3 MG/DL (1.5-2.4); PHOSPHORUS 3.8 MG/DL (2.3-4.5); POTASSIUM 4.2 MMOL/L (3.5-5.1); SODIUM 149 MMOL/L (135-145); TOTAL PROTEIN 5.9 G/DL (6.4-8.2); eGFR 79 ML/MIN
--- NOTE | 2021-07-24 06:30 | NUR ---
Problems reprioritized. Patient report given, questions answered & plan of care reviewed with Melissa GIBBS.
[2021-07-24 06:34] LABS: TOTAL CARBON DIOXIDE 42.5 MMOL/L (24-32)
[2021-07-24 07:00] VITALS: BP 93/47
--- NOTE | 2021-07-24 07:14 | NUR ---
Patient in room PCU 3028. I have received report from Niesha GIBBS and had the opportunity to ask questions and assume patient care.
--- NOTE | 2021-07-24 07:20 | NUR ---
PAGER ID: [phone] MESSAGE: Pt Truman Lozada [id number]. Critical venous CO2 42.5, up from 41.3 yesterday. Will keep pt on bipap and consult RT. Thank you, Rickey [id number]
[2021-07-24] MEDS: K, MAG and/or Phos replacement - Verify level? MC SCH (08:00)
[2021-07-24] MEDS: (Tiotropium Br/Olodaterol HCl (Stiolto Respimat Inhal Spray) IH SCH (08:00)
[2021-07-24] MEDS: amiodarone 200mg tablet PO SCH (08:51)
[2021-07-24] MEDS: gabapentin 300mg capsule PO SCH ×2 (08:51→16:01)
[2021-07-24] MEDS: piperacillin/tazo 3.375gm/50ml 50 ML IV SCH (08:51)
[2021-07-24] MEDS: ESCITALOPRAM OXALATE 5 MG TABLET PO SCH (08:51)
[2021-07-24] MEDS: calcium carbonate 500mg tablet PO SCH (08:51)
[2021-07-24] MEDS: pantoprazole 40mg Tablet.DR PO SCH (08:51)
[2021-07-24] MEDS: lactobacillus rhamnosus 10,000 MMU CELLS/CAPSULE PO SCH (08:51)
[2021-07-24] MEDS: apixaban 5mg tablet PO SCH (08:52)
[2021-07-24] MEDS: predniSONE 5mg tablet PO SCH (08:53)
[2021-07-24 11:00] VITALS: BP 108/50
[2021-07-24 15:00] VITALS: BP 105/60
--- NOTE | 2021-07-24 18:14 | NUR ---
Problems reprioritized. Patient report given, questions answered & plan of care reviewed with Bianca RN.
--- NOTE | 2021-07-24 19:47 | NUR ---
DISCHARGE NOTE; Patient discharged out of facility, in alert and responsive state, denied respiratory and physical distress at time of discharge. Maintained on 02 at 6L N/C. Vital signs at time of leaving was 98.0, 78, 20, 94%, and 108/58. Cleaned and dried, and IV lines disconnected prior to departure.
== END 2021-07-24 19:20 | DRG 193 ==
LOC: ER 19:37 → UNDOADMIN 07-17 01:44 → ED HOLD 07-17 01:44 → ICU 2S 07-17 12:36 → PCU 3S 07-18 15:48
PROVIDERS: ADMIT Internal Medicine Critical Care Medicine; ATTEND Internal Medicine Critical Care Medicine
PROC: 5A09357 Assistance with Respiratory Ventilation, Less than 24 Consecutive Hours, Continuous Positive Airway Pressure (ICD-10-PCS; principal; 2021-07-16)
PROC: B32T1ZZ Computerized Tomography (CT Scan) of Left Pulmonary Artery using Low Osmolar Contrast (ICD-10-PCS; 2021-07-16)
PROC: B3201ZZ Computerized Tomography (CT Scan) of Thoracic Aorta using Low Osmolar Contrast (ICD-10-PCS; 2021-07-16)
PROC: B32S1ZZ Computerized Tomography (CT Scan) of Right Pulmonary Artery using Low Osmolar Contrast (ICD-10-PCS; 2021-07-16)
PROC: 5A09457 Assistance with Respiratory Ventilation, 24-96 Consecutive Hours, Continuous Positive Airway Pressure (ICD-10-PCS; 2021-07-20)
PROC: 5A09357 Assistance with Respiratory Ventilation, Less than 24 Consecutive Hours, Continuous Positive Airway Pressure (ICD-10-PCS; 2021-07-22)
PROC: 5A09357 Assistance with Respiratory Ventilation, Less than 24 Consecutive Hours, Continuous Positive Airway Pressure (ICD-10-PCS; 2021-07-23)
DX: J18.9 Pneumonia, unspecified organism (principal); J96.22 Acute and chronic respiratory failure with hypercapnia; J96.21 Acute and chronic respiratory failure with hypoxia; J44.1 Chronic obstructive pulmonary disease with (acute) exacerbation; E87.2 Acidosis; J44.0 Chronic obstructive pulmonary disease with (acute) lower respiratory infection; E87.0 Hyperosmolality and hypernatremia; W18.39XA Other fall on same level, initial encounter; M19.90 Unspecified osteoarthritis, unspecified site; I10 Essential (primary) hypertension; F20.9 Schizophrenia, unspecified; I48.91 Unspecified atrial fibrillation; S09.90XA Unspecified injury of head, initial encounter; Z86.711 Personal history of pulmonary embolism; Y93.89 Activity, other specified; Y92.098 Other place in other non-institutional residence as the place of occurrence of the external cause; Y99.8 Other external cause status; Z79.899 Other long term (current) drug therapy; Z86.718 Personal history of other venous thrombosis and embolism; Z79.01 Long term (current) use of anticoagulants
CPT/HCPCS: 36415; 36600; 70450; 71045; 71275; 80053; 81003; 82248; 82803; 83605; 83735; 83880; 84100; 84145; 84439; 84443; 84484; 85018; 85025; 87040; 87081; 93005; 94640; 94660; 94760; 97110; 97116; 97161; 97530; 97535; 99285; G0378; J0696; J2060; J2543; J7120; J7512; Q9967

== ENCOUNTER 2021-10-10 11:49 | Emergency (ER) | payer OTHER, BC ==
[~2021-10-10] VITALS: Ht 185.4 cm; Wt 119.1 kg
[~2021-10-10 11:49] MED LIST changes: +FURO20TA4 PO; +IPRA3AMP9 IH; +LACTC PO; -LORA-269 PO; +PANT-47 PO; +PRED10TA PO; -PRED20TA PO; +PRED5TAB PO
[2021-10-10 13:06] LABS: BASOPHILS % (AUTO) 0.1 % (0-1); EOSINOPHILS % (AUTO) 0.4 % (0-6); HEMATOCRIT 34.8 % (42.0-52.0); HEMOGLOBIN 10.9 g/dl (14.0-17.9); LYMPHOCYTES # (AUTO) 0.5 X10'3 (1.1-4.8); LYMPHOCYTES % (AUTO) 8.7 % (21-51); MEAN CORPUSCULAR HEMOGLOBIN 29.9 PG (27.0-31.0); MEAN CORPUSCULAR HGB CONC 31.3 g/dL (33.0-36.5); MEAN CORPUSCULAR VOLUME 95.4 FL (78-98); MEAN PLATELET VOLUME 6.4 FL (7.4-10.4); MONOCYTES # (AUTO) 0.6 X10'3 (0-0.9); MONOCYTES % (AUTO) 9.2 % (2-12); NEUTROPHILS # (AUTO) 5.1 X10'3 (1.8-7.7); NEUTROPHILS % (AUTO) 81.6 % (42-75); PLATELET COUNT 208 X10'3 (140-440); RED BLOOD COUNT 3.65 X10'6 (4.70-6.10); RED CELL DISTRIBUTION WIDTH 15.9 % (11.5-14.5); WHITE BLOOD COUNT 6.3 X10'3 (4.5-11.0)
--- NOTE | 2021-10-10 13:09 | NUR ---
URSZULA FRIAS BEDSIDE.
[2021-10-10] MEDS ORDERED: gabapentin 300mg capsule PO ONE (13:15)
[2021-10-10 13:18] LABS: D-DIMER 0.63 MG/L FEU (0-0.50)
--- NOTE | 2021-10-10 13:29 | NUR ---
EVAN BROTHER [phone].
[2021-10-10 13:46] LABS: ALANINE AMINOTRANSFERASE 39 U/L (12-78); ALBUMIN 2.9 G/DL (3.4-5.0); ALBUMIN/GLOBULIN RATIO 0.8 (1.1-1.5); ALKALINE PHOSPHATASE 54 IU/L (46-116); ANION GAP 3 (8-16); ASPARTATE AMINO TRANSFERASE 21 U/L (10-37); BILIRUBIN,TOTAL 0.7 MG/DL (0.1-1.0); BLOOD UREA NITROGEN 9 MG/DL (7-18); CALCIUM 8.5 MG/DL (8.5-10.1); CHLORIDE 104 MMOL/L (99-107); CREATININE 0.82 MG/DL (0.60-1.10); GLUCOSE 105 MG/DL (70-104); POTASSIUM 4.3 MMOL/L (3.5-5.1); SODIUM 146 MMOL/L (135-145); TOTAL CARBON DIOXIDE 38.9 MMOL/L (24-32); TOTAL PROTEIN 6.5 G/DL (6.4-8.2); eGFR > 90 ML/MIN
[2021-10-10] MEDS ORDERED: ipratropium/albuterol 3ml nebule NEB ONE (14:15)
[2021-10-10] MEDS ORDERED: albuterol 2.5 MG/3 ML nebule NEB ONE (14:15)
--- NOTE | 2021-10-10 14:39 | NUR ---
RESPITORY PERSONNEL AT BEDSIDE.
[2021-10-10 17:46] VITALS: BP 137/71
== END 2021-10-10 18:15 | disposition home or self-care (01) ==
LOC: ER 11:49
DX: J96.10 Chronic respiratory failure, unspecified whether with hypoxia or hypercapnia (principal); I10 Essential (primary) hypertension; M19.90 Unspecified osteoarthritis, unspecified site; F20.9 Schizophrenia, unspecified; Z87.01 Personal history of pneumonia (recurrent); Z79.899 Other long term (current) drug therapy
CPT/HCPCS: 36415; 71045; 80053; 83880; 84145; 84484; 85025; 85379; 93005; 94640; 94760; 99285

== ENCOUNTER 2021-10-14 20:13 | Emergency (ER) | payer OTHER, BC ==
[~2021-10-14] VITALS: Ht 185.4 cm; Wt 115.0 kg
[2021-10-14 20:37] LABS: BASOPHILS % (AUTO) 0.5 % (0-1); EOSINOPHILS % (AUTO) 0.3 % (0-6); HEMATOCRIT 33.8 % (42.0-52.0); HEMOGLOBIN 10.9 g/dl (14.0-17.9); LYMPHOCYTES # (AUTO) 1.6 X10'3 (1.1-4.8); LYMPHOCYTES % (AUTO) 21.4 % (21-51); MEAN CORPUSCULAR HEMOGLOBIN 30.7 PG (27.0-31.0); MEAN CORPUSCULAR HGB CONC 32.2 g/dL (33.0-36.5); MEAN CORPUSCULAR VOLUME 95.4 FL (78-98); MEAN PLATELET VOLUME 6.4 FL (7.4-10.4); MONOCYTES # (AUTO) 0.7 X10'3 (0-0.9); MONOCYTES % (AUTO) 9.5 % (2-12); NEUTROPHILS # (AUTO) 5.2 X10'3 (1.8-7.7); NEUTROPHILS % (AUTO) 68.3 % (42-75); PLATELET COUNT 216 X10'3 (140-440); RED BLOOD COUNT 3.55 X10'6 (4.70-6.10); RED CELL DISTRIBUTION WIDTH 15.8 % (11.5-14.5); WHITE BLOOD COUNT 7.7 X10'3 (4.5-11.0)
[2021-10-14 20:46] LABS: ALANINE AMINOTRANSFERASE 35 U/L (12-78); ALBUMIN 2.9 G/DL (3.4-5.0); ALBUMIN/GLOBULIN RATIO 0.9 (1.1-1.5); ALKALINE PHOSPHATASE 60 IU/L (46-116); ANION GAP 3 (8-16); ASPARTATE AMINO TRANSFERASE 14 U/L (10-37); BILIRUBIN,TOTAL 0.5 MG/DL (0.1-1.0); BLOOD UREA NITROGEN 16 MG/DL (7-18); BUN/CREATININE RATIO 15.1 (5.4-32.0); CHLORIDE 106 MMOL/L (99-107); CREATININE 1.06 MG/DL (0.60-1.10); GLUCOSE 139 MG/DL (70-104); POTASSIUM 4.6 MMOL/L (3.5-5.1); SODIUM 147 MMOL/L (135-145); TOTAL CARBON DIOXIDE 37.7 MMOL/L (24-32); TOTAL PROTEIN 6.3 G/DL (6.4-8.2); eGFR 68 ML/MIN
[2021-10-14 22:03] VITALS: BP 109/57
[2021-10-15] MEDS ORDERED: HYDR-3972 PO (23:11)
== END 2021-10-14 22:07 | disposition home or self-care (01) ==
LOC: ER 20:13
DX: R06.02 Shortness of breath (principal); Z20.822 Contact with and (suspected) exposure to COVID-19; R50.9 Fever, unspecified; R60.0 Localized edema; J44.9 Chronic obstructive pulmonary disease, unspecified; I10 Essential (primary) hypertension; I48.91 Unspecified atrial fibrillation; Z99.81 Dependence on supplemental oxygen; Z86.711 Personal history of pulmonary embolism; G47.30 Sleep apnea, unspecified; M19.90 Unspecified osteoarthritis, unspecified site; Z87.81 Personal history of (healed) traumatic fracture; Z87.891 Personal history of nicotine dependence; Z79.899 Other long term (current) drug therapy; Z86.2 Personal history of diseases of the blood and blood-forming organs and certain disorders involving the immune mechanism
CPT/HCPCS: 36415; 71045; 80053; 83880; 84484; 85025; 87635; 93005; 99285; C9803

== ENCOUNTER 2021-10-15 18:59 | Emergency (ER) | payer OTHER, BC ==
[~2021-10-15] VITALS: Ht 185.4 cm; Wt 121.0 kg
[2021-10-15 19:38] VITALS: BP 114/66
[2021-10-15] MEDS ORDERED: HYDROcodone/acetaminophen 10/325mg tab PO ONE (23:00)
[2021-10-15] MEDS ORDERED: HYDR-3972 PO (23:11)
[2021-10-15] MEDS ORDERED: lithium carbonate 150mg capsule PO STA (23:23)
[2021-10-15] MEDS ORDERED: quetiapine 100mg tablet PO STA (23:23)
[2021-10-15] MEDS ORDERED: risperiDONE 0.5mg tablet PO ONE (23:25)
[2021-10-15] MEDS ORDERED: ondansetron/PF 4mg/2ml inj IM ONE (23:25)
[2021-10-16] MEDS ORDERED: PRE5T PO (17:44)
[2021-10-16] MEDS ORDERED: IPRA3AMP31 (17:44)
[2021-10-16] MEDS ORDERED: DOCU-345 PO (17:44)
[2021-10-16] MEDS ORDERED: METO-395 PO (17:44)
[2021-10-16] MEDS ORDERED: OLAN5TAB75 PO (17:44)
[2021-10-16] MEDS ORDERED: DIGO250T PO (17:44)
[2021-10-16] MEDS ORDERED: quetiapine 100mg tablet PO SCH (21:00)
== END 2021-10-16 00:39 | disposition home or self-care (01) ==
LOC: ER 18:59
DX: S93.401A Sprain of unspecified ligament of right ankle, initial encounter (principal); I10 Essential (primary) hypertension; J44.9 Chronic obstructive pulmonary disease, unspecified; G47.30 Sleep apnea, unspecified; Z87.81 Personal history of (healed) traumatic fracture; Z86.711 Personal history of pulmonary embolism; Z79.899 Other long term (current) drug therapy; W19.XXXA Unspecified fall, initial encounter; Y93.01 Activity, walking, marching and hiking; Y92.89 Other specified places as the place of occurrence of the external cause; Y99.8 Other external cause status
CPT/HCPCS: 73610; 73630; 99284

== ENCOUNTER 2022-03-06 06:41 | Inpatient (IN) | payer OTHER, BC ==
[~2022-03-06] VITALS: Ht 185.4 cm; Wt 118.3 kg
[~2022-03-06 06:41] MED LIST changes: -ACET-1059 PO; +ACET-1084 PO; +ALBU8.5H17 IH; -CALC-225 PO; +CHOL500050 PO; +DIGO250T PO; +DOCU-345 PO; -IPRA3AMP9 IH; -LACTC PO; +METO-395 PO; +OLAN5TAB75 PO; -OLAN7.5T18 PO; -PRED10TA PO; -PRED5TAB PO; +SIME80TA15 PO; -TIOT4MIS3 IH; +TIOT4MIS3 PO; +TRAZ-251 PO; +[UNRECOGNIZED DRUG - CODE] PO
[2022-03-06] MEDS ORDERED: ipratropium/albuterol 3ml nebule NEB ONE (06:55)
[2022-03-06] MEDS ORDERED: normal saline 1000ML IV soln IVB ONE (06:55)
[2022-03-06 07:08] LABS: BASOPHILS % (AUTO) 0.4 % (0-1); EOSINOPHILS # (AUTO) 0.2 X10'3 (0-0.9); EOSINOPHILS % (AUTO) 1.6 % (0-6); HEMATOCRIT 31.1 % (42.0-52.0); HEMOGLOBIN 9.5 g/dl (14.0-17.9); LYMPHOCYTES # (AUTO) 1.4 X10'3 (1.1-4.8); LYMPHOCYTES % (AUTO) 12.6 % (21-51); MEAN CORPUSCULAR HEMOGLOBIN 26.6 PG (27.0-31.0); MEAN CORPUSCULAR HGB CONC 30.7 g/dL (33.0-36.5); MEAN CORPUSCULAR VOLUME 86.8 FL (78-98); MEAN PLATELET VOLUME 6.4 FL (7.4-10.4); MONOCYTES # (AUTO) 1.2 X10'3 (0-0.9); MONOCYTES % (AUTO) 10.9 % (2-12); NEUTROPHILS # (AUTO) 8.2 X10'3 (1.8-7.7); NEUTROPHILS % (AUTO) 74.5 % (42-75); PLATELET COUNT 255 X10'3 (140-440); RED BLOOD COUNT 3.59 X10'6 (4.70-6.10); RED CELL DISTRIBUTION WIDTH 16.7 % (11.5-14.5); WHITE BLOOD COUNT 11.1 X10'3 (4.5-11.0)
--- NOTE | 2022-03-06 07:14 | NUR ---
RT AT BEDSIDE FOR BREATHING TREATMENT
[2022-03-06 07:34] LABS: ALANINE AMINOTRANSFERASE 21 U/L (12-78); ALBUMIN 2.7 G/DL (3.4-5.0); ALBUMIN/GLOBULIN RATIO 0.6 (1.1-1.5); ALKALINE PHOSPHATASE 61 IU/L (46-116); ANION GAP -2 (8-16); ASPARTATE AMINO TRANSFERASE 15 U/L (10-37); BILIRUBIN,TOTAL 0.6 MG/DL (0.1-1.0); BLOOD UREA NITROGEN 18 MG/DL (7-18); BUN/CREATININE RATIO 20.2 (5.4-32.0); CALCIUM 8.3 MG/DL (8.5-10.1); CHLORIDE 102 MMOL/L (99-107); CREATININE 0.89 MG/DL (0.60-1.10); GLUCOSE 118 MG/DL (70-104); POTASSIUM 4.3 MMOL/L (3.5-5.1); SODIUM 140 MMOL/L (135-145); TOTAL PROTEIN 6.9 G/DL (6.4-8.2); eGFR 83 ML/MIN
[2022-03-06 07:34] LABS: ABG BASE EXCESS 12.9 mmol/L (-2.0-2.0); ABG HCO3 41.1 mmol/L (22.0-26.0); ABG OXYGEN SATURATION 90.5 % (94-97); ABG PCO2 (T) 81.4 mmHg (35.0-48.0); ABG PO2 (T) 70.6 mmHg (75.0-100.0); ALLEN'S TEST POSITIVE; FCOHb 0.5 % (0.0-3.9); FLOW 5 L/min; FMetHb 0.2 % (0.0-1.5); FO2Hb 89.9 % (94-97); PATIENT TEMPERATURE 38.6; TOTAL HEMOGLOBIN 10.7 G/dl (14.0-18.0)
[2022-03-06 07:43] LABS: TOTAL CARBON DIOXIDE 40.4 MMOL/L (24-32)
[2022-03-06] MEDS ORDERED: digoxin 250mcg/ml 2ml ampule IV ONE (07:45)
[2022-03-06] MEDS ORDERED: metoprolol tartrate 1mg/ml inj IV ONE (07:45)
[2022-03-06] MEDS ORDERED: cefepime 2g/NS 100ml ADVANTAGE 100 ML IV STA (08:01)
[2022-03-06] MEDS ORDERED: vancomycin inj 1,000 MG in normal saline 250ml IV soln 250 ML IV ONE (08:05)
[2022-03-06 08:09] LABS: CLARITY,URINE CLEAR (Clear); COLOR,URINE YELLOW (Yellow); GLUCOSE, URINE NEGATIVE (Neg); KETONES,URINE NEGATIVE (Neg); LEUKOCYTE ESTERASE ,URINE NEGATIVE (Neg); NITRITES, URINE NEGATIVE (Neg); OCCULT BLOOD,URINE NEGATIVE (Neg); PROTEIN,URINE NEGATIVE (Neg); UROBILINOGEN,URINE 0.2 E.U/dL (0.2-1.0)
[2022-03-06 08:12] LABS: UA COLLECTION TYPE NON-SPECIFIED
[2022-03-06] MEDS ORDERED: vancomycin/NS 1 GM ADD-VANTAGE 250 ML IV ONE (08:15)
[2022-03-06] MEDS ORDERED: mag hydrox/Alum hydrox/simeth 30ml oral suspension PO PRN (08:50)
[2022-03-06] MEDS ORDERED: acetaminophen 325mg tablet PO PRN ×2 (08:50)
[2022-03-06] MEDS ORDERED: magnesium hydroxide 30ml (MOM) UD suspension PO PRN (08:50)
[2022-03-06] MEDS ORDERED: ondansetron/PF 4mg/2ml inj IV PRN (08:50)
[2022-03-06] MEDS ORDERED: morphine 2 MG/ML inj. syringe IV PRN ×2 (08:50)
[2022-03-06 10:34] VITALS: BP 100/49
--- NOTE | 2022-03-06 10:34 | NUR ---
Pt arrived from the ER at 1034. Apparently pulling the bed blankets back before [facility] is incredibly difficult for ER staff. Patient arrived still in a brief, with severe excoriation and 3 spots of stage 2 pressure ulcers on coccyx. Patient had Vanco running that was not properly hooked up as an IVPB. NS was not hooked up to a pump whatsoever, was hooked up on its own primary tubing and was connected to the last port on vanco primary tubing.
[2022-03-06 11:00] VITALS: BP 100/49
[2022-03-06] MEDS: HYDROcodone/acetaminophen 5mg/325mg tablet PO PRN ×2 (14:41→22:10)
[2022-03-06 15:00] VITALS: BP 116/55
[2022-03-06] MEDS ORDERED: IPRA3AMP31 IH (15:18)
[2022-03-06] MEDS ORDERED: ACET-3080 PO (15:18)
[2022-03-06] MEDS ORDERED: HYDR-3965 PO (15:18)
[2022-03-06] MEDS: cefepime 1GM/NS ADD-VANTAGE 100 ML IV SCH (16:20)
[2022-03-06 18:00] VITALS: BP 120/53
--- NOTE | 2022-03-06 18:57 | NUR ---
Problems reprioritized. Patient report given, questions answered & plan of care reviewed with Lou GIBBS.
[2022-03-06] MEDS: docusate sod 100mg capsule PO SCH (20:00)
[2022-03-06 22:00] VITALS: BP 121/61
[2022-03-06] MEDS: vancomycin/NS 1 GM ADD-VANTAGE 250 ML IV SCH (22:11)
[2022-03-07] VITALS (9 sets, daily range): BP systolic 113–159; BP diastolic 45–68
[2022-03-07] MEDS: cefepime 1GM/NS ADD-VANTAGE 100 ML IV SCH ×3 (00:32→16:53)
[2022-03-07 06:12] LABS: BASOPHILS % (AUTO) 0.2 % (0-1); EOSINOPHILS # (AUTO) 0.2 X10'3 (0-0.9); EOSINOPHILS % (AUTO) 1.5 % (0-6); HEMATOCRIT 31.7 % (42.0-52.0); HEMOGLOBIN 9.4 g/dl (14.0-17.9); LYMPHOCYTES # (AUTO) 0.9 X10'3 (1.1-4.8); LYMPHOCYTES % (AUTO) 6.9 % (21-51); MEAN CORPUSCULAR HEMOGLOBIN 25.8 PG (27.0-31.0); MEAN CORPUSCULAR HGB CONC 29.7 g/dL (33.0-36.5); MEAN CORPUSCULAR VOLUME 87.1 FL (78-98); MEAN PLATELET VOLUME 6.5 FL (7.4-10.4); MONOCYTES # (AUTO) 1.5 X10'3 (0-0.9); MONOCYTES % (AUTO) 12.1 % (2-12); NEUTROPHILS # (AUTO) 9.8 X10'3 (1.8-7.7); NEUTROPHILS % (AUTO) 79.3 % (42-75); PLATELET COUNT 233 X10'3 (140-440); RED BLOOD COUNT 3.64 X10'6 (4.70-6.10); RED CELL DISTRIBUTION WIDTH 16.8 % (11.5-14.5); WHITE BLOOD COUNT 12.4 X10'3 (4.5-11.0)
[2022-03-07 06:16] LABS: ALBUMIN 2.7 G/DL (3.4-5.0); ANION GAP 2 (8-16); BLOOD UREA NITROGEN 14 MG/DL (7-18); BUN/CREATININE RATIO 17.9 (5.4-32.0); CALCIUM 8.5 MG/DL (8.5-10.1); CHLORIDE 101 MMOL/L (99-107); CREATININE 0.78 MG/DL (0.60-1.10); GLUCOSE 123 MG/DL (70-104); POTASSIUM 4.5 MMOL/L (3.5-5.1); SODIUM 141 MMOL/L (135-145); TOTAL CARBON DIOXIDE 38.2 MMOL/L (24-32); eGFR > 90 ML/MIN
--- NOTE | 2022-03-07 06:26 | NUR ---
at aprox 0530 patiend desatyed to mid-70's. Placed on 10 L non-rebreather paged respiratory. Respirtory therapist currently with patient
--- NOTE | 2022-03-07 06:46 | NUR ---
Patient in room PCU 3012. I have received report from Lou GIBBS and had the opportunity to ask questions and assume patient care.
--- NOTE | 2022-03-07 07:54 | NUR ---
PAGER ID: [phone] MESSAGE: [id number] Truman Lozada: Pts condition has declined, currently on Bipap, 40% 02, oxygen sat 87. Can we get a stat ABG? Rosi [facility] ext [phone]
[2022-03-07] MEDS: docusate sod 100mg capsule PO SCH ×3 (08:00→20:08)
--- NOTE | 2022-03-07 08:25 | NUR ---
Any came to floor, examined patient and verbally ordered stat ABG.
[2022-03-07] MEDS: vancomycin/NS 1 GM ADD-VANTAGE 250 ML IV SCH ×2 (09:27→22:55)
[2022-03-07 10:27] LABS: ABG BASE EXCESS 6.7 mmol/L (-2.0-2.0); ABG HCO3 36.8 mmol/L (22.0-26.0); ABG PCO2 (T) 96.9 mmHg (35.0-48.0); ABG PO2 (T) 88.2 mmHg (75.0-100.0); ALLEN'S TEST Modified; FCOHb 0.3 % (0.0-3.9); FLOW 5 L/min; FMetHb 0.3 % (0.0-1.5); FO2Hb 93.4 % (94-97); PATIENT TEMPERATURE 37.6
[2022-03-07] MEDS ORDERED: albuterol 2.5 MG/3 ML nebule NEB PRN (11:10)
[2022-03-07] MEDS ORDERED: ipratropium/albuterol 3ml nebule IH PRN (11:10)
[2022-03-07] MEDS ORDERED: simethicone 80mg chew tab PO PRN (11:10)
[2022-03-07] MEDS ORDERED: HYDROcodone/acetaminophen 5mg/325mg tablet PO PRN (11:10)
[2022-03-07 12:22] LABS: ABG BASE EXCESS 9.8 mmol/L (-2.0-2.0); ABG OXYGEN SATURATION 90.7 % (94-97); ABG PCO2 (T) 85.8 mmHg (35.0-48.0); ABG PO2 (T) 64.5 mmHg (75.0-100.0); ALLEN'S TEST Modified; FCOHb 0.3 % (0.0-3.9); FMetHb 0.3 % (0.0-1.5); FO2Hb 90.2 % (94-97); PATIENT TEMPERATURE 36.9; RESPIRATORY RATE 12 b/min; TOTAL HEMOGLOBIN 9.9 G/dl (14.0-18.0)
[2022-03-07] MEDS: gabapentin 300mg capsule PO SCH ×2 (13:00→20:10)
--- NOTE | 2022-03-07 13:05 | NUR ---
PAGER ID: [phone] MESSAGE: [id number] Truman Lozada: ABG results after 1 hour on bipap - CO2: 85.8 PH: 7.274 Bicarb:39.0 - Respiratory adjusted bipap accordingly Rosi CEDILLO
--- NOTE | 2022-03-07 13:43 | NUR ---
PRESSURE ULCER EDUCATION: DEFINITION: A pressure ulcer is an area of skin that breaks down when you stay in one position too long. The constant pressure against the skin reduces the blood flow to that area and the affected tissue dies. CAUSES: "Being bedridden or in a wheelchair "Fragile skin "Having a chronic condition, such as diabetes or vascular disease "Inability to move certain parts of your body without assistance "Older age "Incontinence of urine or stool SYMPTOMS: "A reddened area that DOES NOT turn white when pressed on - this can be the beginning of a pressure ulcer "A blister, deep sore or a crater - these can be advanced pressure ulcers FIRST AID: "Relieve the pressure on this area "Keep the area clean and dry "Call your primary doctor if you see any of the above symptoms "DO NOT massage the area "DO NOT use a donut shaped or ring shaped pillow- these actually interfere with the blood flow and cause complications PREVENTION: "Check for pressure ulcers everyday "Change position at least every two hours to relieve pressure "Use items that help relieve pressure- pillows, sheepskin, foam padding, and powders. "Keep skin clean and dry "Eat healthy well balanced meals "Exercise daily IF YOU SEE ANY OF THESE SYMPTOMS WHILE IN THE HOSPITAL - TELL YOUR NURSE IMMEDIATELY. IF YOU SEE ANY OF THESE SYMPTOMS WHILE AT HOME OR HAVE ANY QUESTIONS OR CONCERNS ABOUT PRESSURE ULCERS - CALL YOUR PRIMARY DOCTOR IMMEDIATELY. Addendum: 03/07/22 at 1343 by Candi Reinoso LVN Amended: Links added.
[2022-03-07] MEDS: apixaban 5mg tablet PO SCH (20:05)
[2022-03-07] MEDS ORDERED: VANCOMYCIN LEVEL IV ONE (20:30)
[2022-03-07] MEDS: traZODone 50mg tablet PO SCH (21:00)
[2022-03-08] MEDS: cefepime 1GM/NS ADD-VANTAGE 100 ML IV SCH ×3 (01:51→16:46)
[2022-03-08 02:00] VITALS: BP 108/57
[2022-03-08 06:00] VITALS: BP 116/53
[2022-03-08 06:10] LABS: BASOPHILS % (AUTO) 0.3 % (0-1); EOSINOPHILS # (AUTO) 0.1 X10'3 (0-0.9); EOSINOPHILS % (AUTO) 1.5 % (0-6); LYMPHOCYTES # (AUTO) 0.8 X10'3 (1.1-4.8); LYMPHOCYTES % (AUTO) 13.3 % (21-51); MEAN PLATELET VOLUME 6.5 FL (7.4-10.4); MONOCYTES # (AUTO) 0.9 X10'3 (0-0.9); MONOCYTES % (AUTO) 14.4 % (2-12); NEUTROPHILS # (AUTO) 4.4 X10'3 (1.8-7.7); NEUTROPHILS % (AUTO) 70.5 % (42-75); PLATELET COUNT 189 X10'3 (140-440); WHITE BLOOD COUNT 6.2 X10'3 (4.5-11.0)
[2022-03-08 06:19] LABS: ALBUMIN 2.3 G/DL (3.4-5.0); ANION GAP 2 (8-16); BLOOD UREA NITROGEN 12 MG/DL (7-18); BUN/CREATININE RATIO 18.8 (5.4-32.0); CALCIUM 8.5 MG/DL (8.5-10.1); CHLORIDE 105 MMOL/L (99-107); CREATININE 0.64 MG/DL (0.60-1.10); GLUCOSE 85 MG/DL (70-104); POTASSIUM 4.2 MMOL/L (3.5-5.1); SODIUM 143 MMOL/L (135-145); eGFR > 90 ML/MIN
--- NOTE | 2022-03-08 06:25 | NUR ---
Patient in room PCU 3012. I have received report from Lou and had the opportunity to ask questions and assume patient care.
[2022-03-08 06:30] LABS: HEMATOCRIT 28.5 % (42.0-52.0); HEMOGLOBIN 8.7 g/dl (14.0-17.9); MEAN CORPUSCULAR HEMOGLOBIN 27.5 PG (27.0-31.0); MEAN CORPUSCULAR HGB CONC 30.5 g/dL (33.0-36.5); MEAN CORPUSCULAR VOLUME 90.1 FL (78-98); RED BLOOD COUNT 3.16 X10'6 (4.70-6.10); RED CELL DISTRIBUTION WIDTH 16.8 % (11.5-14.5)
[2022-03-08] MEDS: Tiotropium Br/Olodaterol HCl (Stiolto Respimat Inhal Spray) PO SCH (08:00)
[2022-03-08] MEDS: docusate sod 100mg capsule PO SCH ×3 (08:00→21:18)
[2022-03-08] MEDS ORDERED: metoprolol succinate 25mg (24-HOUR) SR. Tablet PO SCH (08:00)
--- NOTE | 2022-03-08 09:17 | NUR ---
Noted pt with a low Viral of 10. Per wound care note pt with IAD to coccyx, buttocks, and scrotum. Pt currently on a heart healthy diet documented with 75-100% PO intake of first meal with 0% PO intake at dinner 03/07. Noted at previous admit pt was seen by ST 02/[address] recs pureed food with thin liquids as pt with difficulty chewing d/t lack of teeth, though noted pt has eaten well at previous admits with no texture modification. D/w dietary to send soft to chew chopped food at this time, though will monitor need for BSS with ST this admit. Will continue to follow closely. Addendum: 03/08/22 at [address] Amended: Links added.
[2022-03-08] MEDS ORDERED: metoprolol tartrate 1mg/ml inj IV ONE (09:20)
[2022-03-08] MEDS: pantoprazole 40mg Tablet.DR PO SCH (09:31)
[2022-03-08] MEDS: apixaban 5mg tablet PO SCH ×2 (09:32→21:35)
[2022-03-08] MEDS: calcium carbonate 500mg tablet PO SCH (09:32)
[2022-03-08] MEDS: furosemide 20MG tablet PO SCH (09:33)
[2022-03-08] MEDS: digoxin 250mcg (0.25mg) tablet PO SCH (09:33)
[2022-03-08] MEDS: gabapentin 300mg capsule PO SCH ×3 (09:33→21:19)
[2022-03-08] MEDS: cholecalciferol (vitamin D3) 1,000 unit (25mcg) tablet PO SCH (09:34)
[2022-03-08] MEDS: ESCITALOPRAM OXALATE 5 MG TABLET PO SCH (09:35)
[2022-03-08] MEDS: OLANZAPINE 5 MG TABLET PO SCH (09:46)
[2022-03-08] MEDS: VANCOmycin 1250MG/NS 250ml Bag 250 ML IV SCH ×2 (10:17→21:35)
[2022-03-08 11:00] VITALS: BP 107/57
--- NOTE | 2022-03-08 16:38 | NUR ---
PAGER ID: [phone] MESSAGE: Patient: Truman Lozada: RM 8102A. Patient positive for MRSA in Nares. My Ext [phone].
[2022-03-08 18:00] VITALS: BP 111/70
[2022-03-08] MEDS: traZODone 50mg tablet PO SCH (21:53)
[2022-03-08 22:00] VITALS: BP 105/62
[2022-03-09] MEDS: cefepime 1GM/NS ADD-VANTAGE 100 ML IV SCH ×3 (00:19→16:07)
[2022-03-09 02:00] VITALS: BP 100/64
[2022-03-09 06:00] VITALS: BP 134/61
[2022-03-09 07:37] LABS: BASOPHILS % (AUTO) 0.3 % (0-1); EOSINOPHILS # (AUTO) 0.1 X10'3 (0-0.9); EOSINOPHILS % (AUTO) 2.4 % (0-6); HEMATOCRIT 26.5 % (42.0-52.0); HEMOGLOBIN 8.3 g/dl (14.0-17.9); LYMPHOCYTES # (AUTO) 1.1 X10'3 (1.1-4.8); LYMPHOCYTES % (AUTO) 19.7 % (21-51); MEAN CORPUSCULAR HEMOGLOBIN 26.8 PG (27.0-31.0); MEAN CORPUSCULAR HGB CONC 31.2 g/dL (33.0-36.5); MEAN CORPUSCULAR VOLUME 85.8 FL (78-98); MEAN PLATELET VOLUME 6.8 FL (7.4-10.4); MONOCYTES # (AUTO) 0.9 X10'3 (0-0.9); MONOCYTES % (AUTO) 15.5 % (2-12); NEUTROPHILS # (AUTO) 3.6 X10'3 (1.8-7.7); NEUTROPHILS % (AUTO) 62.1 % (42-75); PLATELET COUNT 204 X10'3 (140-440); RED BLOOD COUNT 3.09 X10'6 (4.70-6.10); RED CELL DISTRIBUTION WIDTH 16.5 % (11.5-14.5); WHITE BLOOD COUNT 5.8 X10'3 (4.5-11.0)
[2022-03-09] MEDS: Tiotropium Br/Olodaterol HCl (Stiolto Respimat Inhal Spray) PO SCH (08:00)
[2022-03-09 08:01] LABS: ALBUMIN 2.1 G/DL (3.4-5.0); ANION GAP 2 (8-16); BLOOD UREA NITROGEN 12 MG/DL (7-18); BUN/CREATININE RATIO 15.8 (5.4-32.0); CALCIUM 8.1 MG/DL (8.5-10.1); CHLORIDE 106 MMOL/L (99-107); CREATININE 0.76 MG/DL (0.60-1.10); GLUCOSE 94 MG/DL (70-104); POTASSIUM 3.7 MMOL/L (3.5-5.1); SODIUM 146 MMOL/L (135-145); TOTAL CARBON DIOXIDE 38.3 MMOL/L (24-32); eGFR > 90 ML/MIN
[2022-03-09] MEDS: OLANZAPINE 5 MG TABLET PO SCH (08:45)
[2022-03-09] MEDS: apixaban 5mg tablet PO SCH ×2 (08:46→21:32)
[2022-03-09] MEDS: metoprolol succinate 25mg (24-HOUR) SR. Tablet PO SCH (08:48)
[2022-03-09] MEDS: furosemide 20MG tablet PO SCH (08:50)
[2022-03-09] MEDS: ESCITALOPRAM OXALATE 5 MG TABLET PO SCH (08:51)
[2022-03-09] MEDS: gabapentin 300mg capsule PO SCH ×3 (08:52→21:32)
[2022-03-09] MEDS: docusate sod 100mg capsule PO SCH ×2 (08:52→21:32)
[2022-03-09] MEDS: digoxin 250mcg (0.25mg) tablet PO SCH (08:52)
[2022-03-09] MEDS: cholecalciferol (vitamin D3) 1,000 unit (25mcg) tablet PO SCH (08:52)
[2022-03-09] MEDS: calcium carbonate 500mg tablet PO SCH (08:53)
[2022-03-09] MEDS: pantoprazole 40mg Tablet.DR PO SCH (08:53)
--- NOTE | 2022-03-09 09:11 | NUR ---
Spoke with Dr Means regarding patient's heart rhythm and rate. Patient in Afib with RVR. Heart rate ranging from 120-140. New orders received.
[2022-03-09] MEDS ORDERED: metoprolol tartrate 1mg/ml inj IV ONE (09:15)
[2022-03-09] MEDS: VANCOmycin 1250MG/NS 250ml Bag 250 ML IV SCH ×2 (09:31→21:31)
--- NOTE | 2022-03-09 09:44 | NUR ---
Patient received IV metoprolol 10mg. BP 96/50; HR 93 post administration.
[2022-03-09 11:00] VITALS: BP 106/57
[2022-03-09 15:00] VITALS: BP 113/56
[2022-03-09] MEDS ORDERED: digoxin 250mcg/ml 2ml ampule IV ONE (16:00)
[2022-03-09 18:00] VITALS: BP 119/71
[2022-03-09] MEDS ORDERED: VANCOMYCIN LEVEL IV ONE (20:30)
[2022-03-09] MEDS: traZODone 50mg tablet PO SCH (21:33)
[2022-03-09 22:00] VITALS: BP 132/61
[2022-03-10] MEDS: cefepime 1GM/NS ADD-VANTAGE 100 ML IV SCH ×3 (01:06→18:28)
[2022-03-10 02:00] VITALS: BP 132/62
[2022-03-10] MEDS: HYDROcodone/acetaminophen 5mg/325mg tablet PO PRN ×2 (02:09→20:06)
[2022-03-10 07:00] VITALS: BP 146/93
[2022-03-10 07:12] LABS: BASOPHILS % (AUTO) 0.4 % (0-1); EOSINOPHILS # (AUTO) 0.2 X10'3 (0-0.9); EOSINOPHILS % (AUTO) 2.8 % (0-6); HEMATOCRIT 27.6 % (42.0-52.0); HEMOGLOBIN 8.6 g/dl (14.0-17.9); LYMPHOCYTES # (AUTO) 1.3 X10'3 (1.1-4.8); LYMPHOCYTES % (AUTO) 23.8 % (21-51); MEAN CORPUSCULAR HEMOGLOBIN 26.8 PG (27.0-31.0); MEAN CORPUSCULAR HGB CONC 31.1 g/dL (33.0-36.5); MEAN CORPUSCULAR VOLUME 86.4 FL (78-98); MEAN PLATELET VOLUME 6.6 FL (7.4-10.4); MONOCYTES # (AUTO) 0.9 X10'3 (0-0.9); MONOCYTES % (AUTO) 16.4 % (2-12); NEUTROPHILS # (AUTO) 3.1 X10'3 (1.8-7.7); NEUTROPHILS % (AUTO) 56.6 % (42-75); PLATELET COUNT 200 X10'3 (140-440); RED BLOOD COUNT 3.19 X10'6 (4.70-6.10); RED CELL DISTRIBUTION WIDTH 16.3 % (11.5-14.5); WHITE BLOOD COUNT 5.5 X10'3 (4.5-11.0)
[2022-03-10 07:21] LABS: ALBUMIN 2.2 G/DL (3.4-5.0); ANION GAP 3 (8-16); BLOOD UREA NITROGEN 11 MG/DL (7-18); BUN/CREATININE RATIO 14.9 (5.4-32.0); CALCIUM 8.6 MG/DL (8.5-10.1); CHLORIDE 105 MMOL/L (99-107); CREATININE 0.74 MG/DL (0.60-1.10); GLUCOSE 94 MG/DL (70-104); POTASSIUM 4.1 MMOL/L (3.5-5.1); SODIUM 147 MMOL/L (135-145); TOTAL CARBON DIOXIDE 38.9 MMOL/L (24-32); eGFR > 90 ML/MIN
[2022-03-10] MEDS: ESCITALOPRAM OXALATE 5 MG TABLET PO SCH (08:28)
[2022-03-10] MEDS: cholecalciferol (vitamin D3) 1,000 unit (25mcg) tablet PO SCH (08:28)
[2022-03-10] MEDS: metoprolol succinate 25mg (24-HOUR) SR. Tablet PO SCH (08:28)
[2022-03-10] MEDS: gabapentin 300mg capsule PO SCH ×3 (08:29→20:06)
[2022-03-10] MEDS: calcium carbonate 500mg tablet PO SCH (08:29)
[2022-03-10] MEDS: apixaban 5mg tablet PO SCH ×2 (08:29→20:05)
[2022-03-10] MEDS: pantoprazole 40mg Tablet.DR PO SCH (08:29)
[2022-03-10] MEDS: docusate sod 100mg capsule PO SCH ×2 (08:29→20:05)
[2022-03-10] MEDS: furosemide 20MG tablet PO SCH (08:29)
[2022-03-10] MEDS: digoxin 250mcg (0.25mg) tablet PO SCH (08:30)
[2022-03-10] MEDS: OLANZAPINE 5 MG TABLET PO SCH (08:30)
--- NOTE | 2022-03-10 09:10 | NUR ---
Initial: Pt admitted w/ acute hypoxemic and hypercapnic respiratory failure and possible PNA per EMR, currently on BiPAP. Pt on Heart Healthy diet w/ moderate PO intake, avg 61% x 8 meals partially meeting needs. Could benefit from Ensure Enlive BID to assist w/ meeting nutritional needs. Respiratory status may be making it more difficult to eat. LBM 5/5 receiving routine colace. Will continue to monitor. Recs: 1. Continue Heart Healthy diet as tolerated; soft to chew foods and chopped meats 2. Ensure Enlive BIDBD; pending MD verification 3. Bowel care per rx 4. Scaled wts this admit Addendum: 03/10/22 at [address] Amended: Links added.
[2022-03-10 09:39] LABS: ABG BASE EXCESS 11.6 mmol/L (-2.0-2.0); ABG HCO3 39.5 mmol/L (22.0-26.0); ABG OXYGEN SATURATION 94.9 % (94-97); ABG PCO2 (T) 75.5 mmHg (35.0-48.0); ALLEN'S TEST POSITIVE; FCOHb 0.3 % (0.0-3.9); FMetHb 0.1 % (0.0-1.5); FO2Hb 94.5 % (94-97); TOTAL HEMOGLOBIN 9.5 G/dl (14.0-18.0)
[2022-03-10 11:00] VITALS: BP 145/73
[2022-03-10] MEDS: VANCOmycin 1250MG/NS 250ml Bag 250 ML IV SCH ×2 (14:50→20:06)
[2022-03-10 15:00] VITALS: BP 106/65
[2022-03-10] MEDS ORDERED: lactose-reduced food (Ensure Enlive) - 237ml bottle PO SCH (17:30)
[2022-03-10 18:00] VITALS: BP 127/73
[2022-03-10] MEDS: Tiotropium Br/Olodaterol HCl (Stiolto Respimat Inhal Spray) PO SCH (18:35)
[2022-03-10] MEDS: traZODone 50mg tablet PO SCH (20:06)
[2022-03-10 22:00] VITALS: BP 124/54
[2022-03-11] MEDS: cefepime 1GM/NS ADD-VANTAGE 100 ML IV SCH ×3 (00:16→09:14)
[2022-03-11 02:00] VITALS: BP 103/59
[2022-03-11] MEDS: HYDROcodone/acetaminophen 5mg/325mg tablet PO PRN (04:39)
--- NOTE | 2022-03-11 06:13 | NUR ---
Problems reprioritized. Patient report given, questions answered & plan of care reviewed with katalina Aranda.
[2022-03-11 06:50] LABS: BASOPHILS % (AUTO) 0.6 % (0-1); EOSINOPHILS # (AUTO) 0.2 X10'3 (0-0.9); EOSINOPHILS % (AUTO) 3.2 % (0-6); HEMATOCRIT 30.4 % (42.0-52.0); HEMOGLOBIN 9.1 g/dl (14.0-17.9); LYMPHOCYTES # (AUTO) 1.2 X10'3 (1.1-4.8); LYMPHOCYTES % (AUTO) 23.1 % (21-51); MEAN CORPUSCULAR HEMOGLOBIN 26.1 PG (27.0-31.0); MEAN CORPUSCULAR HGB CONC 30.1 g/dL (33.0-36.5); MEAN CORPUSCULAR VOLUME 86.8 FL (78-98); MEAN PLATELET VOLUME 6.8 FL (7.4-10.4); MONOCYTES # (AUTO) 0.7 X10'3 (0-0.9); MONOCYTES % (AUTO) 12.8 % (2-12); NEUTROPHILS # (AUTO) 3.2 X10'3 (1.8-7.7); NEUTROPHILS % (AUTO) 60.3 % (42-75); PLATELET COUNT 215 X10'3 (140-440); RED BLOOD COUNT 3.51 X10'6 (4.70-6.10); RED CELL DISTRIBUTION WIDTH 16.5 % (11.5-14.5); WHITE BLOOD COUNT 5.3 X10'3 (4.5-11.0)
[2022-03-11 07:00] VITALS: BP 118/62
[2022-03-11 07:20] LABS: ALBUMIN 2.4 G/DL (3.4-5.0); ANION GAP 0 (8-16); BLOOD UREA NITROGEN 8 MG/DL (7-18); BUN/CREATININE RATIO 10.7 (5.4-32.0); CALCIUM 8.6 MG/DL (8.5-10.1); CHLORIDE 108 MMOL/L (99-107); CREATININE 0.75 MG/DL (0.60-1.10); GLUCOSE 100 MG/DL (70-104); POTASSIUM 4.1 MMOL/L (3.5-5.1); SODIUM 147 MMOL/L (135-145); TOTAL CARBON DIOXIDE 39.3 MMOL/L (24-32); eGFR > 90 ML/MIN
[2022-03-11] MEDS: OLANZAPINE 5 MG TABLET PO SCH (08:00)
[2022-03-11] MEDS ORDERED: metoprolol succinate 25mg (24-HOUR) SR. Tablet PO SCH (08:00)
[2022-03-11] MEDS: VANCOmycin 1250MG/NS 250ml Bag 250 ML IV SCH ×2 (09:00→09:14)
--- NOTE | 2022-03-11 09:00 | NUR ---
Patients IV infiltrated. IV meds not given. said may discharge, wait to place new IV. Patient is scheduled for discharge, no IV needed.
[2022-03-11] MEDS: cholecalciferol (vitamin D3) 1,000 unit (25mcg) tablet PO SCH (09:11)
[2022-03-11] MEDS: calcium carbonate 500mg tablet PO SCH (09:12)
[2022-03-11] MEDS: pantoprazole 40mg Tablet.DR PO SCH (09:12)
[2022-03-11] MEDS: gabapentin 300mg capsule PO SCH ×2 (09:12→13:53)
[2022-03-11] MEDS: docusate sod 100mg capsule PO SCH (09:12)
[2022-03-11] MEDS: apixaban 5mg tablet PO SCH (09:12)
[2022-03-11] MEDS: furosemide 20MG tablet PO SCH (09:13)
[2022-03-11] MEDS: digoxin 250mcg (0.25mg) tablet PO SCH (09:14)
[2022-03-11] MEDS: ESCITALOPRAM OXALATE 5 MG TABLET PO SCH (09:14)
--- NOTE | 2022-03-11 10:41 | NUR ---
PAGER ID: [phone] MESSAGE: [id number] Truman Lozada: Blood [facility] at 1040 [facility] 111[facility]69 [facility]
[2022-03-11] MEDS ORDERED: CEFU500T66 PO (10:55)
[2022-03-11] MEDS ORDERED: METO-395 PO ×2 (10:55)
[2022-03-11 11:00] VITALS: BP 111/69
--- NOTE | 2022-03-11 13:36 | NUR ---
Pt report called to Luisana Anderson. Spoke with and gave report to Raquel Price RN. Patient is set to be transferred at 1430.
== END 2022-03-11 15:00 | DRG 189 ==
LOC: ER 06:41 → ED HOLD 08:50 → PCU 3S 10:58
PROVIDERS: ADMIT Internal Medicine; ATTEND Internal Medicine
PROC: 5A09357 Assistance with Respiratory Ventilation, Less than 24 Consecutive Hours, Continuous Positive Airway Pressure (ICD-10-PCS; principal; 2022-03-07)
PROC: 5A09357 Assistance with Respiratory Ventilation, Less than 24 Consecutive Hours, Continuous Positive Airway Pressure (ICD-10-PCS; 2022-03-08)
PROC: 5A09357 Assistance with Respiratory Ventilation, Less than 24 Consecutive Hours, Continuous Positive Airway Pressure (ICD-10-PCS; 2022-03-09)
PROC: 5A09357 Assistance with Respiratory Ventilation, Less than 24 Consecutive Hours, Continuous Positive Airway Pressure (ICD-10-PCS; 2022-03-10)
PROC: 5A09357 Assistance with Respiratory Ventilation, Less than 24 Consecutive Hours, Continuous Positive Airway Pressure (ICD-10-PCS; 2022-03-11)
DX: J96.21 Acute and chronic respiratory failure with hypoxia (principal); J18.9 Pneumonia, unspecified organism; G93.41 Metabolic encephalopathy; J44.0 Chronic obstructive pulmonary disease with (acute) lower respiratory infection; J96.22 Acute and chronic respiratory failure with hypercapnia; Z20.822 Contact with and (suspected) exposure to COVID-19; D64.9 Anemia, unspecified; F20.9 Schizophrenia, unspecified; G89.29 Other chronic pain; I10 Essential (primary) hypertension; G47.00 Insomnia, unspecified; I48.0 Paroxysmal atrial fibrillation; F32.A Depression, unspecified; G47.30 Sleep apnea, unspecified; M19.90 Unspecified osteoarthritis, unspecified site; Y95 Nosocomial condition; Z79.01 Long term (current) use of anticoagulants; Z79.899 Other long term (current) drug therapy; Z82.49 Family history of ischemic heart disease and other diseases of the circulatory system; Z86.711 Personal history of pulmonary embolism; Z87.891 Personal history of nicotine dependence; J44.9 Chronic obstructive pulmonary disease, unspecified
CPT/HCPCS: 36415; 36600; 71045; 80048; 80053; 80162; 80202; 81003; 82803; 83735; 83880; 84145; 84484; 85018; 85025; 87040; 87081; 87635; 93005; 94640; 94660; 94760; 96365; 97110; 97161; 97530; 99285; C9803; G0378; J0692; J1160; J2270; J3370; J3490; J7030

== ENCOUNTER 2022-03-12 15:15 | Inpatient (IN) | payer OTHER, BC ==
[~2022-03-12] VITALS: Ht 177.8 cm; Wt 125.0 kg
[~2022-03-12 15:15] MED LIST changes: -ACET-1084 PO; +ACET-3080 PO; +CEFU500T66 PO; +HYDR-3965 PO; +IPRA3AMP31 IH
[2022-03-12 15:32] LABS: ABG BASE EXCESS 19.1 mmol/L (-2.0-2.0); ABG HCO3 48.9 mmol/L (22.0-26.0); ABG OXYGEN SATURATION 94.5 % (94-97); ABG PCO2 (T) 100.2 mmHg (35.0-48.0); ABG PO2 (T) 71.6 mmHg (75.0-100.0); ALLEN'S TEST POSITIVE; FCOHb 0.6 % (0.0-3.9); FLOW 3 L/min; FMetHb 0.2 % (0.0-1.5); FO2Hb 93.7 % (94-97); PATIENT TEMPERATURE 36.4; TOTAL HEMOGLOBIN 9.2 G/dl (14.0-18.0)
[2022-03-12 15:57] LABS: BASOPHILS % (AUTO) 0.3 % (0-1); EOSINOPHILS # (AUTO) 0.1 X10'3 (0-0.9); EOSINOPHILS % (AUTO) 1.6 % (0-6); LYMPHOCYTES # (AUTO) 1.2 X10'3 (1.1-4.8); LYMPHOCYTES % (AUTO) 19.8 % (21-51); MEAN PLATELET VOLUME 6.9 FL (7.4-10.4); MONOCYTES # (AUTO) 0.7 X10'3 (0-0.9); NEUTROPHILS # (AUTO) 3.9 X10'3 (1.8-7.7); NEUTROPHILS % (AUTO) 66.3 % (42-75); PLATELET COUNT 217 X10'3 (140-440); RED BLOOD COUNT 3.16 X10'6 (4.70-6.10); WHITE BLOOD COUNT 5.9 X10'3 (4.5-11.0)
[2022-03-12 16:10] LABS: HEMATOCRIT 27.2 % (42.0-52.0); HEMOGLOBIN 8.5 g/dl (14.0-17.9)
[2022-03-12 16:11] LABS: MEAN CORPUSCULAR HEMOGLOBIN 26.8 PG (27.0-31.0); MEAN CORPUSCULAR HGB CONC 31.1 g/dL (33.0-36.5); MEAN CORPUSCULAR VOLUME 86.2 FL (78-98); RED CELL DISTRIBUTION WIDTH 16.7 % (11.5-14.5)
[2022-03-12 16:13] LABS: ALANINE AMINOTRANSFERASE 23 U/L (12-78); ALBUMIN 2.4 G/DL (3.4-5.0); ALBUMIN/GLOBULIN RATIO 0.6 (1.1-1.5); ALKALINE PHOSPHATASE 60 IU/L (46-116); ANION GAP -2 (8-16); ASPARTATE AMINO TRANSFERASE 18 U/L (10-37); BILIRUBIN,TOTAL 0.3 MG/DL (0.1-1.0); BLOOD UREA NITROGEN 8 MG/DL (7-18); CALCIUM 8.3 MG/DL (8.5-10.1); CHLORIDE 105 MMOL/L (99-107); GLUCOSE 133 MG/DL (70-104); POTASSIUM 4.5 MMOL/L (3.5-5.1); SODIUM 148 MMOL/L (135-145); TOTAL PROTEIN 6.6 G/DL (6.4-8.2); eGFR > 90 ML/MIN
[2022-03-12 16:15] LABS: TOTAL CARBON DIOXIDE 44.5 MMOL/L (24-32)
--- NOTE | 2022-03-12 16:56 | NUR ---
RT at bedside to perform ABG.
--- NOTE | 2022-03-12 17:13 | NUR ---
rt at bedside
--- NOTE | 2022-03-12 17:20 | NUR ---
pt given a sip of water. lab at bedside.
[2022-03-12 17:39] LABS: ABG BASE EXCESS 22.5 mmol/L (-2.0-2.0); ABG HCO3 51.2 mmol/L (22.0-26.0); ABG OXYGEN SATURATION 95.3 % (94-97); ABG PCO2 (T) 91.2 mmHg (35.0-48.0); ABG PO2 (T) 72.8 mmHg (75.0-100.0); ALLEN'S TEST POSITIVE; FCOHb 0.4 % (0.0-3.9); FO2Hb 94.9 % (94-97); RESPIRATORY RATE 12 b/min; TIDAL VOLUME 647 mL
--- NOTE | 2022-03-12 18:41 | NUR ---
pt. semi-clements position. awake and alert. cpap on.
--- NOTE | 2022-03-12 19:15 | NUR ---
RT IN ROOM WITH PT. PT COOPERATING WITH RT. PT JAMILAH.
[2022-03-12] MEDS ORDERED: acetaminophen 325mg tablet PO PRN ×2 (20:05)
[2022-03-12] MEDS ORDERED: magnesium hydroxide 30ml (MOM) UD suspension PO PRN (20:05)
[2022-03-12] MEDS ORDERED: ondansetron/PF 4mg/2ml inj IV PRN (20:05)
[2022-03-12] MEDS ORDERED: mag hydrox/Alum hydrox/simeth 30ml oral suspension PO PRN (20:05)
[2022-03-12] MEDS ORDERED: morphine 2 MG/ML inj. syringe IV PRN ×2 (20:05)
[2022-03-12] MEDS ORDERED: HYDROcodone/acetaminophen 5mg/325mg tablet PO PRN (20:05)
--- NOTE | 2022-03-12 20:39 | NUR ---
pt. semi fowlers in bed. reoriente to hospital.
--- NOTE | 2022-03-12 21:21 | NUR ---
YEN([facility]) PLEASE GIVE A CALL BACK WHEN ABLE [phone]
[2022-03-12 21:50] VITALS: BP 116/62
--- NOTE | 2022-03-12 21:50 | NUR ---
Pt came up on gurney. Placed on bipap by RT. Pt cooperative and tolerated transfer from ED well. VSS
[2022-03-13 02:00] VITALS: BP 114/48
--- NOTE | 2022-03-13 05:58 | NUR ---
PAGER ID: [phone] MESSAGE: Pt [id number] [facility] is completed.
[2022-03-13 06:00] VITALS: BP 108/72
--- NOTE | 2022-03-13 06:20 | NUR ---
Problems reprioritized. Patient report given, questions answered & plan of care reviewed with BERNIE Pink.
--- NOTE | 2022-03-13 06:51 | NUR ---
Patient in room PCU 3026. I have received report from Mimi GIBBS and had the opportunity to ask questions and assume patient care. Ptin bed awake on Bipap 40% FIO2, exterior work helper at bedside to collect labs. Bed low rails up x3
[2022-03-13] MEDS ORDERED: docusate sod 100mg capsule PO SCH (08:00)
[2022-03-13] MEDS ORDERED: enoxaparin 40mg/0.4ml syringe SUBCUT SCH (08:00)
[2022-03-13 08:05] LABS: ALBUMIN 2.4 G/DL (3.4-5.0); ANION GAP 3 (8-16); BLOOD UREA NITROGEN 9 MG/DL (7-18); BUN/CREATININE RATIO 13.2 (5.4-32.0); CHLORIDE 104 MMOL/L (99-107); CREATININE 0.68 MG/DL (0.60-1.10); GLUCOSE 79 MG/DL (70-104); POTASSIUM 4.2 MMOL/L (3.5-5.1); SODIUM 147 MMOL/L (135-145); eGFR > 90 ML/MIN
[2022-03-13 08:10] LABS: TOTAL CARBON DIOXIDE 40.5 MMOL/L (24-32)
--- NOTE | 2022-03-13 08:15 | NUR ---
PAGER ID: [phone] MESSAGE: STEPHAN CROSS [id number] CRITICAL CO2 40.5 THANK YOU DHAVAL
[2022-03-13] MEDS ORDERED: metoprolol succinate 25mg (24-HOUR) SR. Tablet PO SCH (08:30)
[2022-03-13] MEDS ORDERED: non-formulary drug (Acetaminophen 1 TAB) PO PRN (08:30)
[2022-03-13] MEDS ORDERED: ALBUTEROL INHALER 1 PUFF/90 MCG INHALER IH PRN (08:30)
[2022-03-13] MEDS ORDERED: OLANZAPINE 5 MG TABLET PO SCH ×2 (08:30→09:14)
[2022-03-13] MEDS ORDERED: HYDROcodone/acetaminophen 5mg/325mg tablet PO PRN (08:30)
[2022-03-13] MEDS: digoxin 250mcg (0.25mg) tablet PO SCH (08:47)
[2022-03-13 09:04] LABS: BASOPHILS % (AUTO) 0.3 % (0-1); EOSINOPHILS # (AUTO) 0.2 X10'3 (0-0.9); EOSINOPHILS % (AUTO) 2.3 % (0-6); HEMATOCRIT 29.5 % (42.0-52.0); HEMOGLOBIN 8.9 g/dl (14.0-17.9); LYMPHOCYTES # (AUTO) 1.7 X10'3 (1.1-4.8); LYMPHOCYTES % (AUTO) 23.1 % (21-51); MEAN CORPUSCULAR HEMOGLOBIN 26.2 PG (27.0-31.0); MEAN CORPUSCULAR HGB CONC 30.2 g/dL (33.0-36.5); MEAN CORPUSCULAR VOLUME 86.6 FL (78-98); MEAN PLATELET VOLUME 6.8 FL (7.4-10.4); MONOCYTES # (AUTO) 0.7 X10'3 (0-0.9); MONOCYTES % (AUTO) 10.1 % (2-12); NEUTROPHILS # (AUTO) 4.6 X10'3 (1.8-7.7); NEUTROPHILS % (AUTO) 64.2 % (42-75); PLATELET COUNT 245 X10'3 (140-440); RED BLOOD COUNT 3.41 X10'6 (4.70-6.10); RED CELL DISTRIBUTION WIDTH 16.6 % (11.5-14.5); WHITE BLOOD COUNT 7.2 X10'3 (4.5-11.0)
[2022-03-13] MEDS ORDERED: albuterol 2.5 MG/3 ML nebule NEB PRN (09:25)
[2022-03-13] MEDS ORDERED: simethicone 80mg chew tab PO PRN (09:40)
--- NOTE | 2022-03-13 09:52 | NUR ---
notifed Dr Marcus of patient c/o R ear pain
[2022-03-13 11:22] VITALS: BP 92/53
[2022-03-13] MEDS: methylPREDNISolone sod succ 125mg/2ml vial IV SCH ×2 (12:36→20:15)
[2022-03-13] MEDS: gabapentin 300mg capsule PO SCH ×2 (12:36→20:16)
[2022-03-13] MEDS ORDERED: levoFLOXACIN 500mg tablet PO ONE (13:40)
[2022-03-13 15:00] VITALS: BP 127/73
[2022-03-13] MEDS: ipratropium/albuterol 3ml nebule NEB SCH ×3 (15:26→23:24)
[2022-03-13] MEDS ORDERED: metoprolol tartrate 25mg tablet PO SCH (16:24)
[2022-03-13] MEDS ORDERED: LOP25T PO (16:26)
[2022-03-13 18:00] VITALS: BP 142/95
[2022-03-13] MEDS: docusate sod 100mg capsule PO SCH (20:16)
[2022-03-13] MEDS: apixaban 5mg tablet PO SCH (20:16)
[2022-03-13] MEDS ORDERED: traZODone 50mg tablet PO SCH (21:00)
[2022-03-13 22:00] VITALS: BP 98/68
[2022-03-14 02:00] VITALS: BP 142/79
[2022-03-14] MEDS: ipratropium/albuterol 3ml nebule NEB SCH ×4 (04:03→15:03)
--- NOTE | 2022-03-14 05:50 | NUR ---
Pt refusing to wear bipap. On nasal canula 4L O2 sats 91-93%
[2022-03-14 06:00] VITALS: BP 104/66
[2022-03-14 06:40] LABS: BASOPHILS % (AUTO) 0.1 % (0-1); EOSINOPHILS % (AUTO) 0.1 % (0-6); HEMATOCRIT 28.7 % (42.0-52.0); LYMPHOCYTES # (AUTO) 0.8 X10'3 (1.1-4.8); LYMPHOCYTES % (AUTO) 15.3 % (21-51); MEAN CORPUSCULAR HEMOGLOBIN 26.5 PG (27.0-31.0); MEAN CORPUSCULAR HGB CONC 31.2 g/dL (33.0-36.5); MEAN CORPUSCULAR VOLUME 84.9 FL (78-98); MONOCYTES # (AUTO) 0.1 X10'3 (0-0.9); MONOCYTES % (AUTO) 2.9 % (2-12); NEUTROPHILS # (AUTO) 4.1 X10'3 (1.8-7.7); NEUTROPHILS % (AUTO) 81.6 % (42-75); PLATELET COUNT 256 X10'3 (140-440); RED BLOOD COUNT 3.38 X10'6 (4.70-6.10); RED CELL DISTRIBUTION WIDTH 16.4 % (11.5-14.5); WHITE BLOOD COUNT 5.1 X10'3 (4.5-11.0)
--- NOTE | 2022-03-14 06:43 | NUR ---
Problems reprioritized. Patient report given, questions answered & plan of care reviewed with BERNIE Olson.
--- NOTE | 2022-03-14 06:54 | NUR ---
Patient in room PCU 3026. I have received report from BERNIE Le and had the opportunity to ask questions and assume patient care.
[2022-03-14 06:56] LABS: ALBUMIN 2.4 G/DL (3.4-5.0); ANION GAP -1 (8-16); BLOOD UREA NITROGEN 12 MG/DL (7-18); BUN/CREATININE RATIO 15.4 (5.4-32.0); CALCIUM 8.7 MG/DL (8.5-10.1); CHLORIDE 103 MMOL/L (99-107); CREATININE 0.78 MG/DL (0.60-1.10); GLUCOSE 154 MG/DL (70-104); POTASSIUM 4.4 MMOL/L (3.5-5.1); SODIUM 142 MMOL/L (135-145); TOTAL CARBON DIOXIDE 39.9 MMOL/L (24-32); eGFR > 90 ML/MIN
--- NOTE | 2022-03-14 07:26 | NUR ---
Pt refusing to wear Bipap. Currently wearing 4L O2 via NC. States he wants to 'get out of bed and get out of here'. Will notify
[2022-03-14] MEDS ORDERED: pantoprazole 40mg Tablet.DR PO SCH (08:00)
[2022-03-14] MEDS ORDERED: furosemide 20MG tablet PO SCH (08:00)
[2022-03-14] MEDS ORDERED: calcium carbonate 500mg tablet PO SCH (08:00)
[2022-03-14] MEDS ORDERED: ESCITALOPRAM OXALATE 5 MG TABLET PO SCH (08:00)
[2022-03-14] MEDS ORDERED: metoprolol tartrate 25mg tablet PO SCH (08:00)
[2022-03-14] MEDS ORDERED: Tiotropium Br/Olodaterol HCl (Stiolto Respimat Inhal Spray) PO SCH (08:00)
[2022-03-14] MEDS ORDERED: cholecalciferol (vitamin D3) 1,000 unit (25mcg) tablet PO SCH (08:00)
[2022-03-14] MEDS: digoxin 250mcg (0.25mg) tablet PO SCH (08:10)
[2022-03-14] MEDS: docusate sod 100mg capsule PO SCH (08:11)
[2022-03-14] MEDS: gabapentin 300mg capsule PO SCH ×2 (08:11→13:03)
[2022-03-14] MEDS: apixaban 5mg tablet PO SCH (08:11)
[2022-03-14] MEDS: methylPREDNISolone sod succ 125mg/2ml vial IV SCH (08:12)
[2022-03-14 11:00] VITALS: BP 102/65
[2022-03-14] MEDS ORDERED: levoFLOXACIN 500mg tablet PO SCH (11:00)
[2022-03-14 15:00] VITALS: BP 96/61
--- NOTE | 2022-03-14 15:40 | NUR ---
Report called to Ellyn at [facility]
--- NOTE | 2022-03-14 17:00 | NUR ---
Pt discharged back to [place] with all belongings, transported via gurney by medical personnel. IV DC'd, cannula intact.
== END 2022-03-14 17:08 | DRG 189 ==
LOC: ER 15:16 → ED HOLD 20:08 → PCU 3S 21:50
PROVIDERS: ADMIT Internal Medicine; ATTEND Family Medicine
PROC: 5A09357 Assistance with Respiratory Ventilation, Less than 24 Consecutive Hours, Continuous Positive Airway Pressure (ICD-10-PCS; principal; 2022-03-12)
PROC: 5A09357 Assistance with Respiratory Ventilation, Less than 24 Consecutive Hours, Continuous Positive Airway Pressure (ICD-10-PCS; 2022-03-13)
DX: J96.21 Acute and chronic respiratory failure with hypoxia (principal); J18.9 Pneumonia, unspecified organism; E87.2 Acidosis; J44.1 Chronic obstructive pulmonary disease with (acute) exacerbation; J44.0 Chronic obstructive pulmonary disease with (acute) lower respiratory infection; Z20.822 Contact with and (suspected) exposure to COVID-19; F20.9 Schizophrenia, unspecified; I10 Essential (primary) hypertension; I48.0 Paroxysmal atrial fibrillation; F32.A Depression, unspecified; J96.22 Acute and chronic respiratory failure with hypercapnia; D63.8 Anemia in other chronic diseases classified elsewhere; G47.30 Sleep apnea, unspecified; M19.90 Unspecified osteoarthritis, unspecified site; Z86.711 Personal history of pulmonary embolism; Z82.49 Family history of ischemic heart disease and other diseases of the circulatory system; Z87.891 Personal history of nicotine dependence; Z79.899 Other long term (current) drug therapy
CPT/HCPCS: 36415; 36600; 71045; 80048; 80053; 82803; 84484; 85018; 85025; 87081; 93005; 94640; 94660; 94760; 99285; G0378; J1650; J2270; J2930

== ENCOUNTER 2022-04-13 02:01 | Emergency (ER) | payer OTHER, BC ==
[~2022-04-13] VITALS: Ht 185.4 cm; Wt 90.9 kg
[~2022-04-13 02:01] MED LIST changes: +LOP25T PO; -METO-395 PO
--- NOTE | 2022-04-13 04:28 | NUR ---
Patient continually taking off vital monitoring equipment. Patient appears disorganized.
[2022-04-13 04:41] LABS: BASOPHILS % (AUTO) 0 % (0-1); EOSINOPHILS # (AUTO) 0.1 X10'3 (0-0.9); HEMATOCRIT 27.9 % (42.0-52.0); HEMOGLOBIN 8.5 g/dl (14.0-17.9); LYMPHOCYTES # (AUTO) 1.1 X10'3 (1.1-4.8); LYMPHOCYTES % (AUTO) 11.5 % (21-51); MEAN CORPUSCULAR HEMOGLOBIN 25.3 PG (27.0-31.0); MEAN CORPUSCULAR HGB CONC 30.6 g/dL (33.0-36.5); MEAN CORPUSCULAR VOLUME 82.8 FL (78-98); MEAN PLATELET VOLUME 6.5 FL (7.4-10.4); MONOCYTES # (AUTO) 1.1 X10'3 (0-0.9); MONOCYTES % (AUTO) 11.5 % (2-12); PLATELET COUNT 224 X10'3 (140-440); RED BLOOD COUNT 3.37 X10'6 (4.70-6.10); RED CELL DISTRIBUTION WIDTH 17.8 % (11.5-14.5); WHITE BLOOD COUNT 9.2 X10'3 (4.5-11.0)
[2022-04-13 04:50] LABS: ALANINE AMINOTRANSFERASE 21 U/L (12-78); ALBUMIN 2.6 G/DL (3.4-5.0); ALBUMIN/GLOBULIN RATIO 0.7 (1.1-1.5); ALKALINE PHOSPHATASE 64 IU/L (46-116); ANION GAP -3 (8-16); ASPARTATE AMINO TRANSFERASE 14 U/L (10-37); BILIRUBIN,TOTAL 0.6 MG/DL (0.1-1.0); BLOOD UREA NITROGEN 12 MG/DL (7-18); BUN/CREATININE RATIO 15.4 (5.4-32.0); CALCIUM 7.9 MG/DL (8.5-10.1); CHLORIDE 104 MMOL/L (99-107); CREATININE 0.78 MG/DL (0.60-1.10); GLUCOSE 104 MG/DL (70-104); POTASSIUM 4.4 MMOL/L (3.5-5.1); SODIUM 142 MMOL/L (135-145); TOTAL PROTEIN 6.3 G/DL (6.4-8.2); eGFR > 90 ML/MIN
[2022-04-13 05:00] LABS: TOTAL CARBON DIOXIDE 41.2 MMOL/L (24-32)
--- NOTE | 2022-04-13 05:52 | NUR ---
Nursing report called to Luisana Anderson.
[2022-04-13] MEDS ORDERED: ESCITALOPRAM OXALATE 5 MG TABLET PO SCH (08:35)
[2022-04-13] MEDS ORDERED: metoprolol succinate 25mg (24-HOUR) SR. Tablet PO SCH (08:35)
[2022-04-13] MEDS ORDERED: OLANZapine 2.5MG tablet PO SCH (08:35)
[2022-04-13 09:12] VITALS: BP 128/74
--- NOTE | 2022-04-13 09:12 | NUR ---
jovan crowe called, informed of pt return to facility. all questions answered at this time.
[2022-04-14] MEDS ORDERED: metoprolol succinate 25mg (24-HOUR) SR. Tablet PO SCH (08:25)
[2022-04-14] MEDS ORDERED: OLANZapine 2.5MG tablet PO SCH (08:25)
[2022-04-14] MEDS ORDERED: ESCITALOPRAM OXALATE 5 MG TABLET PO SCH (08:25)
== END 2022-04-13 09:15 | disposition home or self-care (01) ==
LOC: ER 02:02
DX: R09.02 Hypoxemia (principal); I10 Essential (primary) hypertension; J44.9 Chronic obstructive pulmonary disease, unspecified; M19.90 Unspecified osteoarthritis, unspecified site; G47.30 Sleep apnea, unspecified; F03.90 Unspecified dementia, unspecified severity, without behavioral disturbance, psychotic disturbance, mood disturbance, and anxiety; Z87.81 Personal history of (healed) traumatic fracture; Z86.711 Personal history of pulmonary embolism; Z79.899 Other long term (current) drug therapy
CPT/HCPCS: 36415; 71045; 80053; 83880; 85025; 93005; 99285

== ENCOUNTER 2022-04-13 22:07 | Inpatient (IN) | payer OTHER, BC ==
[~2022-04-13] VITALS: Ht 185.4 cm; Wt 92.9 kg
[2022-04-13 23:44] LABS: BASOPHILS % (AUTO) 0.1 % (0-1); EOSINOPHILS # (AUTO) 0.1 X10'3 (0-0.9); EOSINOPHILS % (AUTO) 1.2 % (0-6); HEMATOCRIT 27.8 % (42.0-52.0); HEMOGLOBIN 8.4 g/dl (14.0-17.9); LYMPHOCYTES # (AUTO) 1.4 X10'3 (1.1-4.8); LYMPHOCYTES % (AUTO) 12.8 % (21-51); MEAN CORPUSCULAR HEMOGLOBIN 24.9 PG (27.0-31.0); MEAN CORPUSCULAR HGB CONC 30.2 g/dL (33.0-36.5); MEAN CORPUSCULAR VOLUME 82.4 FL (78-98); MEAN PLATELET VOLUME 6.2 FL (7.4-10.4); MONOCYTES # (AUTO) 1.4 X10'3 (0-0.9); MONOCYTES % (AUTO) 12.4 % (2-12); NEUTROPHILS # (AUTO) 8.1 X10'3 (1.8-7.7); NEUTROPHILS % (AUTO) 73.5 % (42-75); PLATELET COUNT 237 X10'3 (140-440); RED BLOOD COUNT 3.37 X10'6 (4.70-6.10); RED CELL DISTRIBUTION WIDTH 17.4 % (11.5-14.5); WHITE BLOOD COUNT 11.1 X10'3 (4.5-11.0)
[2022-04-14 00:04] LABS: ALANINE AMINOTRANSFERASE 21 U/L (12-78); ALBUMIN 2.6 G/DL (3.4-5.0); ALBUMIN/GLOBULIN RATIO 0.7 (1.1-1.5); ALKALINE PHOSPHATASE 65 IU/L (46-116); ANION GAP -4 (8-16); ASPARTATE AMINO TRANSFERASE 14 U/L (10-37); BILIRUBIN,TOTAL 0.8 MG/DL (0.1-1.0); BLOOD UREA NITROGEN 15 MG/DL (7-18); CALCIUM 8.2 MG/DL (8.5-10.1); CHLORIDE 101 MMOL/L (99-107); CREATININE 0.79 MG/DL (0.60-1.10); ETHANOL < 0.010 GM/DL (0.0-0.010); GLUCOSE 107 MG/DL (70-104); POTASSIUM 4.2 MMOL/L (3.5-5.1); SODIUM 139 MMOL/L (135-145); TOTAL PROTEIN 6.5 G/DL (6.4-8.2); eGFR > 90 ML/MIN
[2022-04-14 00:17] LABS: TOTAL CARBON DIOXIDE 42.3 MMOL/L (24-32)
[2022-04-14] MEDS ORDERED: piperacillin/tazo 3.375gm/50ml 50 ML IV STA (01:22)
[2022-04-14] MEDS ORDERED: vancomycin/NS 1 GM ADD-VANTAGE 250 ML IV ONE (01:25)
[2022-04-14 02:16] LABS: CLARITY,URINE CLOUDY (Clear); COLOR,URINE YELLOW (Yellow); GLUCOSE, URINE NEGATIVE (Neg); KETONES,URINE NEGATIVE (Neg); LEUKOCYTE ESTERASE ,URINE LARGE (Neg); NITRITES, URINE POSITIVE (Neg); OCCULT BLOOD,URINE SMALL (Neg); PROTEIN,URINE TRACE mg/dl (Neg); UROBILINOGEN,URINE 0.2 E.U/dL (0.2-1.0)
[2022-04-14 02:17] LABS: UA COLLECTION TYPE URINAL
[2022-04-14 02:30] LABS: URINE AMPHETAMINE SCREEN NEGATIVE (Neg); URINE BARBITUATE SCREEN NEGATIVE (Neg); URINE BENZODIAZEPINES SCREEN NEGATIVE (Neg); URINE CANNABINOID SCREEN NEGATIVE (Neg); URINE COCAINE SCREEN NEGATIVE (Neg); URINE METHADONE SCREEN NEGATIVE (Neg); URINE OPIATE SCREEN POSITIVE (Neg); URINE PHENCYCLIDINE SCREEN NEGATIVE (Neg)
[2022-04-14 02:37] LABS: BACTERIA,URINE 3+ /HPF (Neg); MUCUS STRANDS NONE SEEN /LPF (Neg); SQUAMOUS EPITHELIAL CELL,UR NONE SEEN /LPF (FEW); WBC,URINE TNTC /HPF (0-4)
[2022-04-14] MEDS ORDERED: POTASSIUM BICARB 20meq eff tab 20 MEQ TABLET.EFF PO PRN ×2 (02:50)
[2022-04-14] MEDS ORDERED: mag hydrox/Alum hydrox/simeth 30ml oral suspension PO PRN (02:50)
[2022-04-14] MEDS ORDERED: ondansetron/PF 4mg/2ml inj IV PRN (02:50)
[2022-04-14] MEDS ORDERED: magnesium 4gm in 100ml NS 100 ML IV PRN (02:50)
[2022-04-14] MEDS ORDERED: magnesium hydroxide 30ml (MOM) UD suspension PO PRN (02:50)
[2022-04-14] MEDS ORDERED: acetaminophen 325mg tablet PO PRN ×2 (02:50→02:55)
[2022-04-14] MEDS ORDERED: magnesium Cl slow-release 64mg tablet PO PRN (02:50)
[2022-04-14] MEDS ORDERED: potassium CL 10mEq/100ml bag 100 ML IV PRN (02:50)
[2022-04-14] MEDS ORDERED: magnesium 2GM in 50ml NS 50 ML IV PRN (02:50)
[2022-04-14] MEDS ORDERED: simethicone 80mg chew tab PO PRN (02:55)
[2022-04-14] MEDS ORDERED: ipratropium/albuterol 3ml nebule IH PRN ×2 (02:55→03:50)
[2022-04-14] MEDS ORDERED: albuterol 2.5 MG/3 ML nebule NEB PRN (02:55)
[2022-04-14] MEDS ORDERED: digoxin 250mcg/ml 2ml ampule IV ONE (05:15)
[2022-04-14] MEDS ORDERED: metoprolol tartrate 1mg/ml inj IV ONE (05:20)
--- NOTE | 2022-04-14 05:40 | NUR ---
Pt heart rate noted to be variable from 100-160 bpm. Hospitalist notified and ordered a digoxin level drawn then administer 125 mcg IV digoxin and 5 mg metoprolol IV. MD also ordered to continue with daily medications as scheduled.
[2022-04-14 05:59] LABS: MAGNESIUM 2.2 MG/DL (1.5-2.4)
[2022-04-14 06:05] LABS: ABG BASE EXCESS 16.2 mmol/L (-2.0-2.0); ABG HCO3 44.7 mmol/L (22.0-26.0); ABG OXYGEN SATURATION 87.5 % (94-97); ABG PCO2 (T) 82.5 mmHg (35.0-48.0); ABG PO2 (T) 56.1 mmHg (75.0-100.0); ALLEN'S TEST Modified; FCOHb 0.8 % (0.0-3.9); FO2Hb 86.8 % (94-97)
[2022-04-14] MEDS ORDERED: ipratropium/albuterol 3ml nebule NEB SCH (08:00)
[2022-04-14] MEDS ORDERED: furosemide 20MG tablet PO SCH (08:00)
[2022-04-14] MEDS: K and/or MAG REPLACEMENT MC SCH ×2 (08:00→20:00)
[2022-04-14] MEDS: docusate sod 100mg capsule PO SCH ×2 (08:00→23:21)
[2022-04-14] MEDS ORDERED: heparin, porcine 5000 units/ml vial SQ SCH (08:00)
[2022-04-14] MEDS: methylPREDNISolone sod succ 125mg/2ml vial IV SCH ×2 (08:18→21:15)
[2022-04-14] MEDS: cefTRIAXone 1g/NS 100ml IVPB 100 ML IV SCH (08:18)
[2022-04-14] MEDS: apixaban 5mg tablet PO SCH ×2 (08:18→23:22)
[2022-04-14] MEDS: pantoprazole 40mg Tablet.DR PO SCH (08:19)
[2022-04-14] MEDS: gabapentin 300mg capsule PO SCH ×3 (08:20→23:21)
[2022-04-14] MEDS: ESCITALOPRAM OXALATE 5 MG TABLET PO SCH (08:20)
[2022-04-14] MEDS: metoprolol tartrate 25mg tablet PO SCH (08:21)
[2022-04-14] MEDS: OLANZAPINE 5 MG TABLET PO SCH (08:22)
[2022-04-14] MEDS: digoxin 250mcg (0.25mg) tablet PO SCH (08:22)
[2022-04-14] MEDS: ipratropium/albuterol 3ml nebule NEB SCH ×3 (08:39→20:28)
--- NOTE | 2022-04-14 11:37 | NUR ---
pt placed in nonbehavioral soft wrist restraints as pt is confused and ripping off bipap. hospitalist alex made aware
[2022-04-14] MEDS: furosemide 10 MG/1 ML 10ml inj IV SCH (11:50)
[2022-04-14 12:20] LABS: ABG BASE EXCESS 12.7 mmol/L (-2.0-2.0); ABG HCO3 40.6 mmol/L (22.0-26.0); ABG OXYGEN SATURATION 87.3 % (94-97); ABG PCO2 (T) 74.5 mmHg (35.0-48.0); ABG PO2 (T) 55.9 mmHg (75.0-100.0); ALLEN'S TEST POSITIVE; FCOHb 0.8 % (0.0-3.9); FMetHb 0.1 % (0.0-1.5); FO2Hb 86.5 % (94-97); TOTAL HEMOGLOBIN 10.1 G/dl (14.0-18.0)
--- NOTE | 2022-04-14 13:21 | NUR ---
unable to safely take patient off of bipap to adminster the 1300 gabapentin. pt oxygen desats to 60s% when off bipap briefly and it is unsafe to take off at this time
[2022-04-14 16:46] VITALS: BP 121/63
[2022-04-14 18:00] VITALS: BP 90/55
[2022-04-14] MEDS ORDERED: traZODone 50mg tablet PO SCH (21:00)
[2022-04-14 22:00] VITALS: BP 109/58
[2022-04-15 02:00] VITALS: BP 123/60
[2022-04-15] MEDS: ipratropium/albuterol 3ml nebule NEB SCH ×2 (03:00→07:41)
[2022-04-15 06:17] LABS: BASOPHILS % (AUTO) 0.1 % (0-1); EOSINOPHILS % (AUTO) 0 % (0-6); HEMATOCRIT 27.3 % (42.0-52.0); HEMOGLOBIN 8.5 g/dl (14.0-17.9); LYMPHOCYTES # (AUTO) 0.7 X10'3 (1.1-4.8); LYMPHOCYTES % (AUTO) 8.3 % (21-51); MEAN CORPUSCULAR HEMOGLOBIN 25.6 PG (27.0-31.0); MEAN CORPUSCULAR HGB CONC 31.1 g/dL (33.0-36.5); MEAN CORPUSCULAR VOLUME 82.4 FL (78-98); MEAN PLATELET VOLUME 6.9 FL (7.4-10.4); MONOCYTES # (AUTO) 0.2 X10'3 (0-0.9); MONOCYTES % (AUTO) 2.8 % (2-12); NEUTROPHILS % (AUTO) 88.8 % (42-75); PLATELET COUNT 258 X10'3 (140-440); RED BLOOD COUNT 3.31 X10'6 (4.70-6.10); RED CELL DISTRIBUTION WIDTH 17.4 % (11.5-14.5); WHITE BLOOD COUNT 7.9 X10'3 (4.5-11.0)
[2022-04-15 06:31] LABS: ALANINE AMINOTRANSFERASE 18 U/L (12-78); ALBUMIN 2.4 G/DL (3.4-5.0); ALBUMIN/GLOBULIN RATIO 0.6 (1.1-1.5); ALKALINE PHOSPHATASE 65 IU/L (46-116); ANION GAP -2 (8-16); ASPARTATE AMINO TRANSFERASE 14 U/L (10-37); BILIRUBIN,TOTAL 0.5 MG/DL (0.1-1.0); BLOOD UREA NITROGEN 19 MG/DL (7-18); BUN/CREATININE RATIO 25.7 (5.4-32.0); CALCIUM 8.5 MG/DL (8.5-10.1); CHLORIDE 101 MMOL/L (99-107); CREATININE 0.74 MG/DL (0.60-1.10); GLUCOSE 141 MG/DL (70-104); POTASSIUM 4.7 MMOL/L (3.5-5.1); SODIUM 140 MMOL/L (135-145); TOTAL PROTEIN 6.4 G/DL (6.4-8.2); eGFR > 90 ML/MIN
[2022-04-15 06:34] LABS: TOTAL CARBON DIOXIDE 40.6 MMOL/L (24-32)
--- NOTE | 2022-04-15 06:37 | NUR ---
took critical lab for primary RN - reported to hypo dipper
[2022-04-15] MEDS: K and/or MAG REPLACEMENT MC SCH (08:00)
[2022-04-15] MEDS: pantoprazole 40mg Tablet.DR PO SCH (08:00)
[2022-04-15] MEDS: furosemide 10 MG/1 ML 10ml inj IV SCH (09:36)
[2022-04-15] MEDS: cefTRIAXone 1g/NS 100ml IVPB 100 ML IV SCH (09:36)
[2022-04-15] MEDS: methylPREDNISolone sod succ 125mg/2ml vial IV SCH (09:36)
[2022-04-15] MEDS: gabapentin 300mg capsule PO SCH ×2 (09:37→13:00)
[2022-04-15] MEDS: digoxin 250mcg (0.25mg) tablet PO SCH (09:37)
[2022-04-15] MEDS: apixaban 5mg tablet PO SCH (09:37)
[2022-04-15] MEDS: ESCITALOPRAM OXALATE 5 MG TABLET PO SCH (09:38)
[2022-04-15] MEDS: metoprolol tartrate 25mg tablet PO SCH (09:38)
[2022-04-15] MEDS: docusate sod 100mg capsule PO SCH (09:38)
[2022-04-15] MEDS: OLANZAPINE 5 MG TABLET PO SCH (09:42)
[2022-04-15 11:00] VITALS: BP 104/62
--- NOTE | 2022-04-15 12:04 | NUR ---
Covid swab sent to lab.
--- NOTE | 2022-04-15 16:02 | NUR ---
Pt transferred to [facility] and pt transferred to [facility]. Report called to BERNIE Hassan.
== END 2022-04-15 15:58 | DRG 189 ==
LOC: ER 22:07 → ED HOLD 04-14 02:51 → PCU 3S 04-14 14:05
PROVIDERS: ADMIT Internal Medicine; ATTEND Family Medicine
DX: J96.02 Acute respiratory failure with hypercapnia (principal); G93.41 Metabolic encephalopathy; I50.33 Acute on chronic diastolic (congestive) heart failure; E87.2 Acidosis; J44.0 Chronic obstructive pulmonary disease with (acute) lower respiratory infection; J44.1 Chronic obstructive pulmonary disease with (acute) exacerbation; Z20.822 Contact with and (suspected) exposure to COVID-19; I48.91 Unspecified atrial fibrillation; D50.9 Iron deficiency anemia, unspecified; E03.9 Hypothyroidism, unspecified; F03.90 Unspecified dementia, unspecified severity, without behavioral disturbance, psychotic disturbance, mood disturbance, and anxiety; F32.A Depression, unspecified; G47.30 Sleep apnea, unspecified; M19.90 Unspecified osteoarthritis, unspecified site; F20.9 Schizophrenia, unspecified; I11.0 Hypertensive heart disease with heart failure; J96.01 Acute respiratory failure with hypoxia; Z86.711 Personal history of pulmonary embolism; Z87.891 Personal history of nicotine dependence; Z79.899 Other long term (current) drug therapy
CPT/HCPCS: 36415; 36600; 70450; 71045; 71046; 80053; 80162; 80305; 80320; 81001; 81003; 82140; 82803; 82948; 83605; 83735; 84132; 84484; 85018; 85025; 94640; 94660; 94760; 96365; 99285; A4349; A4357; A4615; G0378; J0696; J1160; J1940; J2543; J2930; J3370; J3490; J7040

== ENCOUNTER 2022-04-25 09:22 | Emergency (ER) | payer OTHER, BC ==
[~2022-04-25] VITALS: Ht 185.4 cm; Wt 107.7 kg
[~2022-04-25 09:22] MED LIST changes: -CEFU500T66 PO
[2022-04-25] MEDS ORDERED: diltiazem 5mg/ml 5ml inj. IV ONE (09:40)
[2022-04-25 10:14] LABS: BASOPHILS % (AUTO) 0.2 % (0-1); EOSINOPHILS # (AUTO) 0.1 X10'3 (0-0.9); EOSINOPHILS % (AUTO) 1.2 % (0-6); HEMOGLOBIN 9.6 g/dl (14.0-17.9); LYMPHOCYTES # (AUTO) 1.6 X10'3 (1.1-4.8); MEAN PLATELET VOLUME 6.4 FL (7.4-10.4); MONOCYTES # (AUTO) 0.7 X10'3 (0-0.9); MONOCYTES % (AUTO) 8.9 % (2-12); NEUTROPHILS # (AUTO) 5.3 X10'3 (1.8-7.7); NEUTROPHILS % (AUTO) 68.7 % (42-75); PLATELET COUNT 243 X10'3 (140-440); RED CELL DISTRIBUTION WIDTH 17.2 % (11.5-14.5); WHITE BLOOD COUNT 7.7 X10'3 (4.5-11.0)
[2022-04-25 10:24] LABS: D-DIMER 0.88 MG/L FEU (0-0.50)
[2022-04-25 10:34] LABS: ALANINE AMINOTRANSFERASE 19 U/L (12-78); ALBUMIN 2.7 G/DL (3.4-5.0); ALBUMIN/GLOBULIN RATIO 0.7 (1.1-1.5); ALKALINE PHOSPHATASE 61 IU/L (46-116); ANION GAP 4 (8-16); ASPARTATE AMINO TRANSFERASE 16 U/L (10-37); BILIRUBIN,TOTAL 0.5 MG/DL (0.1-1.0); BLOOD UREA NITROGEN 13 MG/DL (7-18); BUN/CREATININE RATIO 16.7 (5.4-32.0); CALCIUM 8.6 MG/DL (8.5-10.1); CHLORIDE 98 MMOL/L (99-107); CREATININE 0.78 MG/DL (0.60-1.10); GLUCOSE 115 MG/DL (70-104); POTASSIUM 4.1 MMOL/L (3.5-5.1); SODIUM 146 MMOL/L (135-145); TOTAL PROTEIN 6.7 G/DL (6.4-8.2); eGFR > 90 ML/MIN
[2022-04-25 10:36] LABS: HEMATOCRIT 32.8 % (42.0-52.0); MEAN CORPUSCULAR VOLUME 82.3 FL (78-98); RED BLOOD COUNT 3.99 X10'6 (4.70-6.10)
[2022-04-25 10:37] LABS: MEAN CORPUSCULAR HGB CONC 29.2 g/dL (33.0-36.5)
[2022-04-25 10:47] LABS: TOTAL CARBON DIOXIDE 44.3 MMOL/L (24-32)
[2022-04-25] MEDS ORDERED: furosemide 10 MG/1 ML 10ml inj IV ONE (11:30)
[2022-04-25] MEDS ORDERED: FURO-149 PO (12:41)
[2022-04-25 14:17] VITALS: BP 116/64
== END 2022-04-25 16:59 | disposition home or self-care (01) ==
LOC: ER 09:22
DX: I11.0 Hypertensive heart disease with heart failure (principal); I48.91 Unspecified atrial fibrillation; J45.909 Unspecified asthma, uncomplicated; E06.9 Thyroiditis, unspecified; F20.9 Schizophrenia, unspecified; Z87.81 Personal history of (healed) traumatic fracture; Z79.899 Other long term (current) drug therapy; Z20.822 Contact with and (suspected) exposure to COVID-19
CPT/HCPCS: 36415; 71045; 80053; 83880; 84484; 85025; 85379; 87502; 87503; 87635; 96374; 96375; 99285; C9803; J1940; J3490

== ENCOUNTER 2022-05-04 06:11 | Emergency (ER) | payer OTHER, BC ==
[~2022-05-04] VITALS: Ht 185.4 cm; Wt 107.7 kg
[~2022-05-04 06:11] MED LIST changes: +FURO-149 PO
[2022-05-04] MEDS ORDERED: methylPREDNISolone sod succ 125mg/2ml vial IV ONE (06:30)
[2022-05-04] MEDS ORDERED: ipratropium/albuterol 3ml nebule NEB ONE (06:30)
[2022-05-04] MEDS ORDERED: albuterol 2.5 MG/3 ML nebule NEB ONE (06:30)
[2022-05-04 07:30] LABS: BASOPHILS % (AUTO) 0.2 % (0-1); EOSINOPHILS # (AUTO) 0.1 X10'3 (0-0.9); EOSINOPHILS % (AUTO) 1.6 % (0-6); HEMATOCRIT 29.2 % (42.0-52.0); HEMOGLOBIN 8.9 g/dl (14.0-17.9); LYMPHOCYTES # (AUTO) 0.9 X10'3 (1.1-4.8); LYMPHOCYTES % (AUTO) 12.5 % (21-51); MEAN CORPUSCULAR HEMOGLOBIN 25.2 PG (27.0-31.0); MEAN CORPUSCULAR HGB CONC 30.3 g/dL (33.0-36.5); MEAN CORPUSCULAR VOLUME 83.1 FL (78-98); MEAN PLATELET VOLUME 6.6 FL (7.4-10.4); MONOCYTES # (AUTO) 0.8 X10'3 (0-0.9); MONOCYTES % (AUTO) 11.5 % (2-12); NEUTROPHILS # (AUTO) 5.4 X10'3 (1.8-7.7); NEUTROPHILS % (AUTO) 74.2 % (42-75); PLATELET COUNT 228 X10'3 (140-440); RED BLOOD COUNT 3.52 X10'6 (4.70-6.10); RED CELL DISTRIBUTION WIDTH 17.9 % (11.5-14.5); WHITE BLOOD COUNT 7.3 X10'3 (4.5-11.0)
[2022-05-04 07:42] LABS: ALANINE AMINOTRANSFERASE 22 U/L (12-78); ALBUMIN 2.7 G/DL (3.4-5.0); ALBUMIN/GLOBULIN RATIO 0.7 (1.1-1.5); ASPARTATE AMINO TRANSFERASE 20 U/L (10-37); BILIRUBIN,TOTAL 0.5 MG/DL (0.1-1.0); BLOOD UREA NITROGEN 12 MG/DL (7-18); BUN/CREATININE RATIO 16.9 (5.4-32.0); CALCIUM 8.5 MG/DL (8.5-10.1); CHLORIDE 103 MMOL/L (99-107); CREATININE 0.71 MG/DL (0.60-1.10); GLUCOSE 101 MG/DL (70-104); POTASSIUM 4.3 MMOL/L (3.5-5.1); SODIUM 146 MMOL/L (135-145); TOTAL PROTEIN 6.8 G/DL (6.4-8.2); eGFR > 90 ML/MIN
[2022-05-04 07:43] LABS: ALKALINE PHOSPHATASE 64 IU/L (46-116)
[2022-05-04 07:53] LABS: ANION GAP -5 (8-16)
[2022-05-04 07:55] LABS: TOTAL CARBON DIOXIDE 48.2 MMOL/L (24-32)
[2022-05-04 08:50] LABS: ABG BASE EXCESS 19.7 mmol/L (-2.0-2.0); ABG HCO3 49.9 mmol/L (22.0-26.0); ABG OXYGEN SATURATION 89.8 % (94-97); ABG PCO2 (T) 103.6 mmHg (35.0-48.0); ALLEN'S TEST POSITIVE; FCOHb 0.5 % (0.0-3.9); FLOW 2 L/min; FMetHb 0.2 % (0.0-1.5); FO2Hb 89.2 % (94-97); TOTAL HEMOGLOBIN 10.1 G/dl (14.0-18.0)
[2022-05-04 10:13] LABS: ABG BASE EXCESS 21.7 mmol/L (-2.0-2.0); ABG HCO3 51.9 mmol/L (22.0-26.0); ABG PCO2 (T) 105.5 mmHg (35.0-48.0); ABG PO2 (T) 71.8 mmHg (75.0-100.0); ALLEN'S TEST POSITIVE; FCOHb 0.5 % (0.0-3.9); FMetHb 0.2 % (0.0-1.5); FO2Hb 92.3 % (94-97); RESPIRATORY RATE 12 b/min; TOTAL HEMOGLOBIN 9.9 G/dl (14.0-18.0)
[2022-05-04 13:27] LABS: ABG BASE EXCESS 19.7 mmol/L (-2.0-2.0); ABG HCO3 48.5 mmol/L (22.0-26.0); ABG OXYGEN SATURATION 89.7 % (94-97); ABG PCO2 (T) 85.6 mmHg (35.0-48.0); ABG PO2 (T) 57.6 mmHg (75.0-100.0); ALLEN'S TEST POSITIVE; FCOHb 0.4 % (0.0-3.9); FMetHb 0.1 % (0.0-1.5); FO2Hb 89.3 % (94-97); TOTAL HEMOGLOBIN 10.2 G/dl (14.0-18.0)
--- NOTE | 2022-05-04 14:20 | NUR ---
DR JAMES NOTIFIED THAT PT IS BECOMING VARY ANXIOUS WITH THE BIPAP ON, STATES THAT HE FEELS LIKE HE IS GOING TO . ORDER RECEIVED TO REMOVE THE BIPAP AND TO PUT PT BACK ON NC AT 2L. PT ON NC AT 2L WITH O2SAT AT 93-95%
[2022-05-04 14:26] VITALS: BP 118/70
[2022-05-04] MEDS ORDERED: LORazepam 2 mg/ml vial IV ONE (15:05)
== END 2022-05-04 18:38 | disposition home or self-care (01) ==
LOC: ER 06:11
DX: J44.1 Chronic obstructive pulmonary disease with (acute) exacerbation (principal); J96.01 Acute respiratory failure with hypoxia; F03.90 Unspecified dementia, unspecified severity, without behavioral disturbance, psychotic disturbance, mood disturbance, and anxiety; I10 Essential (primary) hypertension; E06.9 Thyroiditis, unspecified; F20.9 Schizophrenia, unspecified; Z87.81 Personal history of (healed) traumatic fracture; Z79.899 Other long term (current) drug therapy; Z88.6 Allergy status to analgesic agent
CPT/HCPCS: 36415; 36600; 71045; 80053; 80162; 82803; 83880; 84484; 85018; 85025; 93005; 94640; 94660; 96374; 96375; 99285; J2060; J2930; 94760; A4615; A6250

== ENCOUNTER 2022-05-11 14:14 | Emergency (ER) | payer OTHER, BC ==
[~2022-05-11] VITALS: Ht 185.4 cm; Wt 118.2 kg
[2022-05-11 14:46] LABS: BASOPHILS % (AUTO) 0.2 % (0-1); EOSINOPHILS # (AUTO) 0.1 X10'3 (0-0.9); EOSINOPHILS % (AUTO) 2.4 % (0-6); HEMATOCRIT 29.3 % (42.0-52.0); HEMOGLOBIN 8.7 g/dl (14.0-17.9); LYMPHOCYTES % (AUTO) 15.7 % (21-51); MEAN CORPUSCULAR HEMOGLOBIN 24.7 PG (27.0-31.0); MEAN CORPUSCULAR HGB CONC 29.7 g/dL (33.0-36.5); MEAN CORPUSCULAR VOLUME 83.1 FL (78-98); MEAN PLATELET VOLUME 6.5 FL (7.4-10.4); MONOCYTES # (AUTO) 0.9 X10'3 (0-0.9); MONOCYTES % (AUTO) 14.7 % (2-12); NEUTROPHILS # (AUTO) 4.1 X10'3 (1.8-7.7); PLATELET COUNT 264 X10'3 (140-440); RED BLOOD COUNT 3.53 X10'6 (4.70-6.10); RED CELL DISTRIBUTION WIDTH 17.9 % (11.5-14.5); WHITE BLOOD COUNT 6.1 X10'3 (4.5-11.0)
[2022-05-11 15:00] LABS: ALANINE AMINOTRANSFERASE 36 U/L (12-78); ALBUMIN 2.6 G/DL (3.4-5.0); ALBUMIN/GLOBULIN RATIO 0.7 (1.1-1.5); ALKALINE PHOSPHATASE 64 IU/L (46-116); ASPARTATE AMINO TRANSFERASE 18 U/L (10-37); BILIRUBIN,TOTAL 0.7 MG/DL (0.1-1.0); BLOOD UREA NITROGEN 12 MG/DL (7-18); BUN/CREATININE RATIO 15.8 (5.4-32.0); CALCIUM 8.6 MG/DL (8.5-10.1); CHLORIDE 99 MMOL/L (99-107); CREATININE 0.76 MG/DL (0.60-1.10); GLUCOSE 129 MG/DL (70-104); POTASSIUM 4.2 MMOL/L (3.5-5.1); SODIUM 146 MMOL/L (135-145); TOTAL PROTEIN 6.5 G/DL (6.4-8.2); eGFR > 90 ML/MIN
[2022-05-11 15:12] LABS: ANION GAP -3 (8-16)
[2022-05-11 15:14] LABS: TOTAL CARBON DIOXIDE > 50 MMOL/L (24-32)
[2022-05-11 15:30] LABS: ANISOCYTOSIS 1+; MICROCYTOSIS 1+; PLATELET ESTIMATE NORMAL; POIKILOCYTOSIS FEW; POLYCHROMASIA FEW; STOMATOCYTES 2+
[2022-05-11 15:57] LABS: ABG BASE EXCESS 27.5 mmol/L (-2.0-2.0); ABG HCO3 58.5 mmol/L (22.0-26.0); ABG PCO2 (T) 115.8 mmHg (35.0-48.0); ABG PO2 (T) 57.5 mmHg (75.0-100.0); ALLEN'S TEST POSITIVE; FCOHb 0.5 % (0.0-3.9); FLOW 3 L/min; FMetHb 0.3 % (0.0-1.5); FO2Hb 86.3 % (94-97)
[2022-05-11 17:33] LABS: ABG BASE EXCESS 25.2 mmol/L (-2.0-2.0); ABG HCO3 55.1 mmol/L (22.0-26.0); ABG OXYGEN SATURATION 86.5 % (94-97); ABG PCO2 (T) 100.4 mmHg (35.0-48.0); ABG PO2 (T) 55.3 mmHg (75.0-100.0); ALLEN'S TEST POSITIVE; FCOHb 0.5 % (0.0-3.9); FMetHb 0.2 % (0.0-1.5); FO2Hb 85.9 % (94-97); TOTAL HEMOGLOBIN 10.1 G/dl (14.0-18.0)
[2022-05-11 18:00] VITALS: BP 104/55
[2022-05-11 18:50] LABS: ABG BASE EXCESS 25.9 mmol/L (-2.0-2.0); ABG HCO3 54.7 mmol/L (22.0-26.0); ABG OXYGEN SATURATION 92.3 % (94-97); ABG PCO2 (T) 87.9 mmHg (35.0-48.0); ABG PO2 (T) 64.4 mmHg (75.0-100.0); ALLEN'S TEST POSITIVE; FCOHb 0.4 % (0.0-3.9); FMetHb 0.2 % (0.0-1.5); FO2Hb 91.7 % (94-97); TOTAL HEMOGLOBIN 10.1 G/dl (14.0-18.0)
== END 2022-05-11 23:00 | disposition home or self-care (01) ==
LOC: ER 14:14
DX: J96.21 Acute and chronic respiratory failure with hypoxia (principal); J96.22 Acute and chronic respiratory failure with hypercapnia; I10 Essential (primary) hypertension; I48.91 Unspecified atrial fibrillation; J44.9 Chronic obstructive pulmonary disease, unspecified; G47.30 Sleep apnea, unspecified; M19.90 Unspecified osteoarthritis, unspecified site; F20.9 Schizophrenia, unspecified; Z79.01 Long term (current) use of anticoagulants; Z79.899 Other long term (current) drug therapy
CPT/HCPCS: 36415; 36600; 71045; 80053; 82803; 83880; 84484; 85008; 85018; 85025; 93005; 94660; 94760; 99285